=== PATIENT | male | born 1950 | race Caucasian/White ===

== ENCOUNTER → 2016-08-08 | Outpatient (CLI) | payer MEDICARE | LOC: GMAB 10:42 | PROVIDERS: ATTEND Family Medicine | DX: E03.9 Hypothyroidism, unspecified (principal); I10 Essential (primary) hypertension; Z12.5 Encounter for screening for malignant neoplasm of prostate | CPT/HCPCS: 80061; 84439; 84443; 84481; G0103 ==

== ENCOUNTER → 2016-11-11 | Outpatient (CLI) | payer MEDICARE ==
--- NOTE | 2016-11-12 16:57 | MRI ---
Procedure: MR LUMBAR SPINE WITHOUT IV CONTRAST Exam Date: 11/11/2016 12:00 AM CDT Ordering Provider: RADHA LEWIS Clinical Indication: RADICULOPATHY Comparison: None Technique: Multiplanar, multisequence MR images of the lumbar spine were obtained. Findings: No evidence of vertebral body compression deformity or acute fracture. Multilevel degenerative disc space height loss and disc desiccation greatest at the L1-L2 and L2-L3 levels. Spinal cord terminates at the superior endplate of L1 and is normal in signal morphology. T12-L1: Broad-based disc bulge and mild bilateral facet arthrosis. No spinal canal or foraminal stenosis. L1-L2: Advanced facet arthrosis and broad-based disc bulge. There is bilateral foraminal disc herniations as well. This contributes to moderate right and mild left neural foraminal stenosis. Spinal canal is patent. L2-L3: Broad-based disc bulge with disc space height loss. There is a large left paracentral disc protrusion measuring 9 mm in AP diameter. This measures 1.1 cm at its base. This results in severe spinal canal stenosis and crowding of the cauda equina with buckling proximal and straightening distally. There is severe left subarticular recess stenosis as well. The foramina however are patent. L3-L4: Broad-based disc bulge without focal disc protrusion. Advanced facet arthrosis and marked ligamentum flavum hypertrophy. No spinal canal or subarticular recess stenosis. There is mild bilateral neural foraminal stenosis with moderate left extraforaminal disc herniation which contacts the traversing left L3 nerve root. L4-L5: Broad-based disc bulge with mild facet arthrosis. Bilateral ligament flavum hypertrophy as well. No spinal canal stenosis at there is mild right greater than left neural foraminal stenosis. L5-S1: Mild bilateral facet arthrosis with broad-based left foraminal disc protrusion. This results in moderate left neural foraminal stenosis and contact of the traversing left L5 nerve root. Spinal canal and right neural foramina are patent. There is mild levoconvex scoliotic curvature with apex of the L1-L2 level. Prevertebral and paravertebral soft tissues are unremarkable. Impression: Multilevel/multifactorial lumbar spondylosis with mild levoconvex scoliotic curvature. There is a large focal disc protrusion at L2-L3 and the left paracentral distribution. This results in severe spinal canal and subarticular recess stenosis at this level. See full discussion above. Electronically signed by: Alverto Kline MD 11/12/2016 4:57 PM CDT
== END | disposition home or self-care (01) ==
LOC: MRI 10:43
PROVIDERS: ATTEND Family Medicine
DX: M54.16 Radiculopathy, lumbar region (principal)

== ENCOUNTER → 2017-05-16 | Outpatient (CLI) | payer MEDICARE | LOC: GMAB 16:44 | PROVIDERS: ATTEND Family Medicine | DX: R06.02 Shortness of breath (principal) ==

== ENCOUNTER → 2017-05-22 | Outpatient (CLI) | payer MEDICARE | END | disposition home or self-care (01) | LOC: GMAB 14:10 | PROVIDERS: ATTEND Family Medicine | DX: L03.311 Cellulitis of abdominal wall (principal) ==

== ENCOUNTER 2017-05-23 15:52 | Inpatient (IN) | payer MEDICARE ==
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
[2017-05-23] MEDS ORDERED: ACETAMINOPHEN 325 MG TAB PO PRN (16:36)
[2017-05-23] MEDS ORDERED: HYDROcodone 5MG/APAP 325MG 1 EA TAB PO PRN (16:36)
[2017-05-23] MEDS ORDERED: CHLORHEXIDINE GLUCONATE 4 % 15 ML UD TOP ONE ×2 (16:46→16:48)
[2017-05-23] MEDS ORDERED: IV SET AND CAP CHANGE INJ INJ SCH (17:00)
[2017-05-23] MEDS ORDERED: DEXTROSE 50% 25 GM/50 ML SYG IV PRN (17:24)
[2017-05-23] MEDS ORDERED: GLUCAGON INJ 1 MG VIAL SUBCU PRN (17:24)
[2017-05-23] MEDS ORDERED: LINEZOLID IV 300 ML IVPB ONE (18:10)
[2017-05-23] MEDS: LINEZOLID IV 600 MG in PREMIX BAG 1 BAG IVPB SCH (18:41)
[2017-05-23] MEDS: INSULIN LISPRO 100 UNITS/ML PEN SUBCU SCH (20:57)
[2017-05-23] MEDS ORDERED: HYDROcodone 7.5MG/APAP 325MG 1 EA TAB PO PRN (22:05)
[2017-05-23] MEDS: INSULIN GLARGINE 42 UNIT SC SCH (22:15)
[2017-05-23] MEDS: CYCLOBENZAPRINE HCL 10 MG TAB PO SCH (22:29)
[2017-05-23] MEDS: ZOLPIDEM TARTRATE 10 MG TAB PO SCH (22:29)
[2017-05-23] MEDS: ATORVASTATIN 20 MG TAB PO SCH (22:29)
[2017-05-23] MEDS: RIVAROXABAN 15 MG TAB PO SCH (22:29)
[2017-05-23] MEDS: PANTOPRAZOLE SODIUM TAB 40 MG PO SCH (22:29)
[2017-05-23] MEDS: TAMSULOSIN 0.4 MG CAP PO SCH (22:30)
[2017-05-23] MEDS: metFORMIN HCL 500 MG TAB PO SCH (22:30)
[2017-05-23] MEDS: diphenhydrAMINE HCL 25 MG CAP PO SCH (22:30)
[2017-05-23] MEDS: CETIRIZINE HCL 10 MG TAB PO SCH (22:30)
[2017-05-23] MEDS ORDERED: METOPROLOL TARTRATE 50 MG TAB PO SCH (22:30)
[2017-05-23] MEDS: glipiZIDE 5 MG TAB PO SCH (22:46)
[2017-05-23] MEDS: GABAPENTIN 300 MG CAP PO SCH (22:46)
--- NOTE | 2017-05-23 23:07 | PCM.CORE ---
Physician DVT/VTE - Prophylaxis Currently: Patient already on anticoagulation therapy - XARELTO - Nurse DVT Assessment & Total Each Risk Factor Represents 3 Points: Hx of DVT/PE, Medical PT with Hx of MT, CHF, Severe infection/sepsis Each Risk Factor Represents 2 Points: Age 60-74 Each Risk Factor is 1 Point: Obesity (BMI >25) DVT Assessment Score: 9 - 5 or more Very High Risk Treatments: Early Ambulation *, Sequential Compression Device
[2017-05-24] MEDS ORDERED: LINEZOLID IV 300 ML IVPB ONE ×3 (04:55→19:54)
[2017-05-24] MEDS: SODIUM CHLORIDE 0.9% (FLUSH) 10 ML SYG IV PRN ×2 (05:01→12:15)
[2017-05-24] MEDS: LINEZOLID IV 600 MG in PREMIX BAG 1 BAG IVPB SCH ×2 (05:01→17:11)
[2017-05-24] MEDS: INSULIN LISPRO 100 UNITS/ML PEN SUBCU SCH ×4 (08:12→20:50)
[2017-05-24] MEDS: glipiZIDE 5 MG TAB PO SCH (08:18)
[2017-05-24] MEDS: metFORMIN HCL 500 MG TAB PO SCH ×2 (08:18→17:10)
[2017-05-24] MEDS: ISOSORBIDE MONONITRATE (IMDUR) 30 MG TAB PO SCH (08:18)
[2017-05-24] MEDS ORDERED: VITAMIN A 8000 UNIT PO SCH (09:00)
[2017-05-24] MEDS ORDERED: glipiZIDE EXTENDED REL (XL) 2.5 MG TAB PO SCH (09:00)
[2017-05-24] MEDS ORDERED: ALPRAZolam 0.5 MG TAB PO PRN (09:59)
[2017-05-24] MEDS: B COMPLEX 1 EA TAB PO SCH ×2 (10:29→11:23)
[2017-05-24] MEDS: CELECOXIB 100 MG CAP PO SCH ×2 (10:29→11:24)
[2017-05-24] MEDS: LISINOPRIL 10 MG TAB PO SCH ×2 (10:30→11:22)
[2017-05-24] MEDS: FENOFIBRIC ACID 135 MG CAP PO SCH ×2 (10:30→11:23)
[2017-05-24] MEDS: VITAMIN E 1,000 IU CAP PO SCH (10:30)
[2017-05-24] MEDS: CYANOCOBALAMIN 1,000 MCG TAB PO SCH (10:30)
[2017-05-24] MEDS: NIACIN 500 MG TAB PO SCH ×2 (10:30→11:23)
[2017-05-24] MEDS: CLOPIDOGREL 75 MG TAB PO SCH ×2 (10:30→11:21)
[2017-05-24] MEDS: GABAPENTIN 300 MG CAP PO SCH ×2 (10:30→20:45)
[2017-05-24] MEDS: MAGNESIUM OXIDE 400 MG TAB PO SCH ×2 (10:30→11:24)
[2017-05-24] MEDS: INSULIN GLARGINE 42 UNIT SC SCH (10:30)
[2017-05-24] MEDS: CHOLECALCIFEROL 2,000 IU TAB PO SCH (10:30)
[2017-05-24] MEDS: METOPROLOL TARTRATE 50 MG TAB PO SCH ×2 (10:35→17:10)
--- NOTE | 2017-05-24 10:51 | US ---
EXAM DESCRIPTION: Soft Tissue,Abdomen CLINICAL HISTORY: abcess to abdomen COMPARISON: None. IMPRESSION: Real-time sonographic images of the left anterior abdominal wall are obtained. No abnormal fluid collection in the visualized subcutaneous soft tissue or upper abdomen is seen by ultrasound criteria. Electronically signed by: Adi Fierro MD 05/24/2017 10:49 AM [facility]
--- NOTE | 2017-05-24 11:00 | CONS ---
DATE OF CONSULTATION: 05/23/17 HISTORY OF PRESENT ILLNESS: The patient is a 66-year-old male who was admitted with an abscess on his anterior abdominal wall. It was I&D'd by Dr. Latham and a culture was pending at the time of discharge. The patient states this area started on last Monday and worsened over the weekend. On Monday, it was incised and by 05/23/17, it was worse and more painful and he was having low- grade fever. He was admitted for IV antibiotics therapy. It is also significant that the patient has multiple myeloma and is undergoing chemotherapy and was scheduled for chemotherapy this week. He has multiple antibiotic allergies also. PAST MEDICAL HISTORY: 1. Diabetes mellitus, type 2. 2. Hypertension. 3. Recurrent pancreatitis. 4. History of renal failure. 5. Osteoarthritis. 6. Coronary artery disease. 7. Hyperlipidemia. 8. Shingles. 9. Degenerative disc disease. 10. Gastroesophageal reflux. 11. Benign prostatic hypertrophy. 12. Myocardial infarctions status post stents. 13. Pulmonary embolism. PAST SURGICAL HISTORY: 1. Multiple endoscopic retrograde cholangiopancreatographies. 2. Cystoscopy for stones. 3. Carpal tunnel release. 4. Laparoscopic cholecystectomy. 5. Pyelolithotomy. 6. Tonsillectomy. 7. Right knee surgery. 8. Right foot surgery. 9. Stem cell transplant. 10. Placement of an infusion port. MEDICATIONS AT TIME OF ADMISSION: 1. Lasix. 2. Metoprolol. 3. Niacin. 4. Lisinopril. 5. Fenofibrate. 6. Glipizide. 7. Xarelto. 8. Isosorbide. 9. Zofran. 10. Gabapentin. 11. Metformin. 12 Protonix. 13. Insulin. 14. Celebrex. 15. Potassium chloride. 16. Cyclobenzaprine. 17. Flomax. 18. Zyrtec. 19. [place]. 20. Benadryl. 21. Nitrostat. 22. Doxycycline prior to admission. 23. Glucotrol. 24. Lipitor. 25. Low dose aspirin. 26. Proventil nebulizers. ALLERGIES: PENICILLIN, VANCOMYCIN, TAPE. FAMILY HISTORY: Positive for coronary artery disease, diabetes, hypertension. SOCIAL HISTORY: The patient is with four children. He does not drink. He quit smoking many years ago. He is disabled secondary to the multiple myeloma. REVIEW OF SYSTEMS: Noncontributory except as in the history of present illness. PHYSICAL EXAMINATION: VITAL SIGNS: The patient is currently afebrile, normotensive. HEENT: Sclerae nonicteric. Mucous membranes moist. NECK: Without adenopathy. CHEST: Equal breath sounds. HEART: Regular rhythm. ABDOMEN: Soft, distended, nontender. There is an area of cellulitis with an incision site on the lateral mid abdomen on the left. There is surrounding erythema and it is quite tender and warm. There is some purulent drainage. EXTREMITIES: Without cyanosis, clubbing or edema. LABORATORY: Normal white count. Culture reveals methicillin-resistant Staphylococcus aureus at this point. PLAN: He has been started on Zyvox. We will have him do a Hibiclens shower prior to the initiation of access to the infusion port and followup with the ultrasound and the cultures tomorrow. [facility][id number] [facility]
[2017-05-24] MEDS ORDERED: diphenhydrAMINE HCL 50 MG/ML VIAL IV ONE (12:10)
[2017-05-24] MEDS ORDERED: diphenhydrAMINE HCL 50 MG/ML VIAL ONE (12:11)
[2017-05-24] MEDS ORDERED: INSULIN DETEMIR 100 UNITS/ML PEN SUBCU ONE ×2 (14:00→15:18)
--- NOTE | 2017-05-24 15:29 | PN ---
DATE: 05/24/17 SUPERVISING PHYSICIAN: Neville Stevenson M.D. SUBJECTIVE: The patient is sitting up on the side of his bed. His is at bedside. He feels much better today and his abdomen is much less sore. He had earlier complaints of some flushing and tingling on his head. We have decided that it was probably his niacin and he agreed that sometimes his home niacin would do that to him, but he usually takes it at night and he had just received his niacin about 30 minutes prior to getting the flushing and tingling. OBJECTIVE: VITAL SIGNS: He is afebrile, heart rate 89, blood pressure 132/79, respiratory rate 20, O2 sat is 98% on room air. RESPIRATORY: Clear to auscultation bilaterally. CARDIAC: Regular rate and rhythm. ABDOMEN: Soft, nondistended, non-tender. Bowel sounds are positive. He does have a dressing over that abscess on his left upper quadrant. The erythema has decreased since yesterday and it is only mildly tender to palpation. EXTREMITIES: No cyanosis, clubbing or edema. NEUROLOGIC: He is awake, alert and oriented times three. LABORATORY: White count is normal at 6.9 with hemoglobin 11.5, hematocrit 33.7. Sodium 135, potassium 4.4, chloride 99, carbon dioxide 26, anion gap 14.4 , BUN 20, creatinine 1.20. Glucose has run between 218 and 292. Calcium 9.1, alkaline phosphatase 37. Wound culture is positive for Staphylococcus aureus. It is MRSA and it is sensitive to Zyvox which he is on. RADIOLOGY: He had a soft tissue ultrasound done this morning and per radiology interpretation shows real time sonographic images of the left anterior abdominal wall with no abnormal fluid collection in the visualize subcutaneous soft tissue or upper abdomen is seen by ultrasound criteria. All other labs and films have been reviewed via the EMR. ASSESSMENT: 1. Abscess and cellulitis to the left abdomen with recent incision and drainage failing to respond to outpatient treatment with Doxycycline and the patient having an immunocompromised state secondary to underlying multiple myeloma with ongoing chemotherapy requiring parenteral antibiotics and surgical consultation for further treatment. 2. History of stage 2 IGG kappa multiple myeloma with previous auto stem placement on current chemotherapy. 3. Diabetes mellitus type 2 requiring insulin therapy. 4. Hypertension. 5. History of recurrent pancreatitis. 6. History of multiple kidney stones. 7. Coronary artery disease. 8. Hyperlipidemia. 9. Gastroesophageal reflux disease. 10. Benign prostatic hypertrophy. 11. History of previous pulmonary embolism on Xarelto. PLAN: We will continue present supportive care. Since his sensitivities are back, we will continue his Zyvox until in the morning and then tomorrow morning we will start him on Doxycycline and Bactrim as both of those show sensitivity on his cultures. Dr. Mercedes examined the patient and he felt at this time there was no need for further incision and drainage, and that he will need to followup if there are any further issues. I have held on any AM labs for now. I also discontinued his niacin here in the hospital. He can take it as instructed once he gets home. We will plan on discharge for tomorrow with his p.o. antibiotics. Otherwise we will continue to monitor the patient closely and followup as needed. Dr. Stevenson is the collaborating physician available for consultation. #[id number] [facility]
[2017-05-24] MEDS: RIVAROXABAN 15 MG TAB PO SCH (20:44)
[2017-05-24] MEDS: TAMSULOSIN 0.4 MG CAP PO SCH (20:45)
[2017-05-24] MEDS: CETIRIZINE HCL 10 MG TAB PO SCH (20:45)
[2017-05-24] MEDS: ATORVASTATIN 20 MG TAB PO SCH (20:45)
[2017-05-24] MEDS: PANTOPRAZOLE SODIUM TAB 40 MG PO SCH (20:45)
[2017-05-24] MEDS: diphenhydrAMINE HCL 25 MG CAP PO SCH (20:47)
[2017-05-24] MEDS: CYCLOBENZAPRINE HCL 10 MG TAB PO SCH (20:47)
[2017-05-24] MEDS: ZOLPIDEM TARTRATE 10 MG TAB PO SCH (20:47)
[2017-05-24] MEDS: INSULIN DETEMIR 100 UNITS/ML PEN SUBCU SCH (20:49)
[2017-05-25] MEDS: LINEZOLID IV 600 MG in PREMIX BAG 1 BAG IVPB SCH (04:41)
[2017-05-25] MEDS ORDERED: glipiZIDE 5 MG TAB PO SCH (07:30)
[2017-05-25] MEDS: INSULIN LISPRO 100 UNITS/ML PEN SUBCU SCH (08:09)
[2017-05-25] MEDS: metFORMIN HCL 500 MG TAB PO SCH (08:10)
[2017-05-25] MEDS: METOPROLOL TARTRATE 50 MG TAB PO SCH (08:10)
[2017-05-25] MEDS ORDERED: SODIUM CHLORIDE 0.9% 250ML 0 ML ONE (08:51)
[2017-05-25] MEDS ORDERED: DOXYCYCLINE HYCLATE IV 100 MG VIAL IVPB ONE (08:52)
[2017-05-25] MEDS ORDERED: DOXYCYCLINE HYCLATE IV 100 MG in SODIUM CHLORIDE 0.9% 250ML 250 ML IVPB SCH (09:00)
[2017-05-25] MEDS ORDERED: SULFA/TRIMETH 800/160 (DS) TAB 1 EA TAB PO SCH (09:00)
[2017-05-25] MEDS ORDERED: DOXYCYCLINE HYCLATE CAP 100 MG CAP PO ONE (09:07)
[2017-05-25] MEDS: FENOFIBRIC ACID 135 MG CAP PO SCH (09:21)
[2017-05-25] MEDS: LISINOPRIL 10 MG TAB PO SCH (09:21)
[2017-05-25] MEDS: ISOSORBIDE MONONITRATE (IMDUR) 30 MG TAB PO SCH (09:21)
[2017-05-25] MEDS: CELECOXIB 100 MG CAP PO SCH (09:21)
[2017-05-25] MEDS: B COMPLEX 1 EA TAB PO SCH (09:21)
[2017-05-25] MEDS: CYANOCOBALAMIN 1,000 MCG TAB PO SCH (09:21)
[2017-05-25] MEDS: VITAMIN E 1,000 IU CAP PO SCH (09:21)
[2017-05-25] MEDS: CLOPIDOGREL 75 MG TAB PO SCH (09:22)
[2017-05-25] MEDS: INSULIN DETEMIR 100 UNITS/ML PEN SUBCU SCH (09:22)
[2017-05-25] MEDS: MAGNESIUM OXIDE 400 MG TAB PO SCH (09:22)
[2017-05-25] MEDS: GABAPENTIN 300 MG CAP PO SCH (09:22)
[2017-05-25] MEDS: CHOLECALCIFEROL 2,000 IU TAB PO SCH (09:28)
--- NOTE | 2017-05-25 10:12 | DS ---
SUPERVISING PHYSICIAN: Neville Stevenson MD DISCHARGE DIAGNOSIS: 1. Abscess and cellulitis to the left abdomen with recent incision and drainage failing to respond to outpatient treatment with Doxycycline and the patient having an immunocompromised state secondary to underlying multiple myeloma with ongoing chemotherapy requiring parenteral antibiotics and surgical consultation for further treatment. 2. History of stage 2 IGG kappa multiple myeloma with previous auto stem placement on current chemotherapy. 3. Diabetes mellitus type 2 requiring insulin therapy. 4. Hypertension. 5. History of recurrent pancreatitis. 6. History of multiple kidney stones. 7. Coronary artery disease. 8. Hyperlipidemia. 9. Gastroesophageal reflux disease. 10. Benign prostatic hypertrophy. 11. History of previous pulmonary embolism on Xarelto. HISTORY OF PRESENT ILLNESS: This is a 66-year-old male patient who has a stage 2 IGG kappa multiple myeloma. He has had a history in the past of cellulitis that is methicillin-resistant Staphylococcus aureus. Monday, he started developing a small area of the left side of his abdomen that slowly worsened over the weekend. He presented to Dr. Latham's office on Monday and had incision and drainage done to the area. Dr. Latham reported that a moderate quantity of purulent drainage was obtained, cultures were sent and the area was packed. The morning of admission, he called Dr. Latham to let him know that the area had gotten worse. He had been started on doxycycline at Dr. Latham's office. Dr. Latham then contacted Neymar Ingram's oncologist in [place] because he was supposed chemotherapy this week, but it was cancelled, and he was sent to the hospital for direct admission for cellulitis on the abdomen failing outpatient therapy. He has an allergy to vancomycin, so he was started on Zyvox IV initially. Over the next two days, it improved dramatically until this morning he actually says it does not even hurt. His cultures and sensitivities came back. It was positive for methicillin-resistant Staphylococcus aureus and had sensitivity to Zyvox, Bactrim and doxycycline. He finished two days of Zyvox this morning and has reached the point that he can be discharged home on oral medications. DISCHARGE PLAN: The patient will be discharged home in stable condition. He is to resume his previous diet and activity. He has a followup appointment with Dr. Latham on 05/31/17 at 10 AM. He is to complete his doxycycline that he has at home as well as I have sent him home on Bactrim. Both Bactrim and doxycycline have sensitivity to his methicillin-resistant Staphylococcus aureus. He is to return to the hospital or followup with Dr. Latham's office for any problems or complications. DISCHARGE MEDICATIONS: 1. Mupirocin ointment. 2. Metformin. 3. Aspirin. 4. Cyclobenzaprine. 5. Zolpidem. 6. Benadryl. 7. Tamsulosin. 8. Hydrocodone. 9. Amlodipine. 10. Furosemide. 11. B-complex with folic acid. 12. Vitamin A. 13. NovoLog insulin. 14. Atorvastatin. 15. Alprazolam. 16. Acyclovir. 17. Acetaminophen. 18. Nitroglycerin. 19. Atenolol. 20. Plavix. 21. Celebrex. 22. Cetirizine. 23. Albuterol sulfate nebulizers. 24. Vitamin B6. 25. Niacin. 26. Lisinopril. 27. Fenofibrate. 28. Glipizide. 29. Xarelto. 30. Isosorbide. 31. Zofran. 32. Gabapentin. 33. Pantoprazole. 34. Cyanocobalamin. 35. Vitamin D. 36. Mag oxide. 37. Insulin Glargine. 38. Vitamin E. 39. Potassium chloride. 40. Doxycycline. 41. Metoprolol tartrate. 42. Bactrim DS. Dr. Stevenson is the collaborating physician and available for consultation. #[id number] [facility]
[2017-05-25 11:02] VITALS: BP 121/78; TEMP 98.6; O2SAT 97
== END 2017-05-25 10:40 | disposition home or self-care (01) | DRG 603 ==
LOC: MS 15:52
PROVIDERS: ADMIT Nurse Practitioner Family; ATTEND Nurse Practitioner Acute Care
DX: L02.211 Cutaneous abscess of abdominal wall (principal); Z94.84 Stem cells transplant status; C90.00 Multiple myeloma not having achieved remission; L03.311 Cellulitis of abdominal wall; E11.9 Type 2 diabetes mellitus without complications; I10 Essential (primary) hypertension; M19.90 Unspecified osteoarthritis, unspecified site; I25.10 Atherosclerotic heart disease of native coronary artery without angina pectoris; E78.5 Hyperlipidemia, unspecified; K21.9 Gastro-esophageal reflux disease without esophagitis; N40.0 Benign prostatic hyperplasia without lower urinary tract symptoms; E66.9 Obesity, unspecified; I25.2 Old myocardial infarction; Z95.5 Presence of coronary angioplasty implant and graft; Z86.711 Personal history of pulmonary embolism; Z95.828 Presence of other vascular implants and grafts; Z79.01 Long term (current) use of anticoagulants; Z79.84 Long term (current) use of oral hypoglycemic drugs; Z79.4 Long term (current) use of insulin; Z79.1 Long term (current) use of non-steroidal anti-inflammatories (NSAID); Z79.82 Long term (current) use of aspirin; Z88.0 Allergy status to penicillin; Z88.1 Allergy status to other antibiotic agents; Z87.891 Personal history of nicotine dependence; Z86.14 Personal history of Methicillin resistant Staphylococcus aureus infection; Z92.21 Personal history of antineoplastic chemotherapy; Z90.49 Acquired absence of other specified parts of digestive tract; Z68.38 Body mass index [BMI] 38.0-38.9, adult

== ENCOUNTER → 2017-05-23 | Outpatient (CLI) | payer MEDICARE | END | disposition home or self-care (01) | LOC: GMAB 14:44 | PROVIDERS: ATTEND Family Medicine | DX: L03.311 Cellulitis of abdominal wall (principal) ==

== ENCOUNTER → 2017-08-15 | Outpatient (CLI) | payer MEDICARE | LOC: GMAB 17:55 | PROVIDERS: ATTEND Family Medicine | DX: I10 Essential (primary) hypertension (principal); Z12.5 Encounter for screening for malignant neoplasm of prostate | CPT/HCPCS: 84443; G0103 ==

== ENCOUNTER 2017-10-21 22:47 | Emergency (ER) | payer MEDICARE ==
[2017-10-21] MEDS ORDERED: ALUMINUM & MAGNESIUM HYDROXIDE 30 ML UD PO ONE (23:23)
[2017-10-21] MEDS ORDERED: ONDANSETRON ODT 8 MG TAB SL ONE (23:23)
[2017-10-21] MEDS ORDERED: ACETAMINOPHEN 325 MG TAB PO ONE (23:23)
[2017-10-21] MEDS ORDERED: FLUCONAZOLE 150 MG TAB PO ONE (23:23)
[2017-10-22] MEDS ORDERED: SODIUM CHLORIDE 0.9% 1000ML 1,000 ML IVS ONE (00:06)
[2017-10-22] MEDS ORDERED: CIPROFLOXACIN 500 MG TAB PO ONE (00:07)
[2017-10-22] MEDS ORDERED: metroNIDAZOLE IV PREMIX 500MG 500 MG in PREMIX BAG 1 BAG IVPB ONE (00:07)
--- NOTE | 2017-10-22 00:15 | RAD ---
EXAM: TWO VIEW SINGLE and UPRIGHT ABDOMEN AND PA CHEST RADIOGRAPHS CLINICAL INDICATION: Abdominal pain. Fever. Chemotherapy. COMPARISON: Chest radiograph of September 30, 2015. FINDINGS: Indwelling venous port central line tip is in the superior vena cava. Cardiac size and pulmonary vasculature are normal. Clear. Several loops of gas-filled nondistended small bowel in the left abdomen. No mechanical bowel obstruction or free peritoneal gas. Sequela of remote cholecystectomy. Degenerative disease in the lower lumbosacral spine. IMPRESSION: 1. Several loops of gas-filled nondistended small bowel which may represent early ileus. No mechanical small bowel obstruction. 2. Normal PA chest radiograph. Electronically signed by: Herber Johnson MD 10/22/2017 12:14 AM CDT
[2017-10-22] MEDS ORDERED: metroNIDAZOLE IV PREMIX 500MG 100 ML IVPB ONE (00:44)
[2017-10-22] MEDS ORDERED: INSULIN LISPRO 100 UNITS/ML PEN SUBCU ONE (00:45)
[2017-10-22] MEDS ORDERED: OSELTAMIVIR 75 MG CAP PO ONE (00:47)
--- NOTE | 2017-10-22 00:58 | ED.PDOC ---
History of Present Illness - General Chief Complaint: GI Problem Stated Complaint: stomach cramping, nausea Time Seen by Provider: 10/21/17 23:13 Source: patient Exam Limitations: no limitations - History of Present Illness Initial Comments: the patient is a 67-year-old male presenting to the emergency room secondary to a low-grade fever and some abdominal cramping today. He has had some diarrhea but that is not a new issue. He has had some bloating and some reflux. No real vomiting because he took some nausea medication. The patient has a history of multiple myeloma and has been on chemotherapy in some form for the last 5 or 6 years. 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 He is not feeling very bad now that he has arrived here. His medications at home have controlled his fever. He reports a fever up to 101 at home. He has not noted any skin lesions like he has had before with previous staph infections. No urinary symptoms. No shortness of breath sort throat or runny nose. Symptoms simply started this morning. Symptoms are mild to moderate. Timing/Duration: 24 hours Severity: moderate Improving Factors: nothing Worsening Factors: nothing Associated Symptoms: fever/chills, loss of appetite, malaise, nausea/vomiting Allergies/Adverse Reactions: Allergies Penicillins Allergy (Verified 05/23/17 15:42) Vancomycin Allergy (Verified 05/23/17 15:42) tape Allergy (Uncoded 05/23/17 15:42) Home Medications: Ambulatory Orders Acetaminophen [Tylenol] 500 mg PO BID PRN 09/29/15 Acyclovir [Zovirax] 400 mg PO BID PRN 09/29/15 Alprazolam [Niravam] 0.5 mg PO TID PRN 09/29/15 Aspirin [Aspirin Adult Low Dose] 81 mg PO DAILY 09/29/15 Atenolol [Tenormin] 100 mg PO BID 09/29/15 Atorvastatin Calcium [Lipitor] 20 mg PO BEDTIME 09/29/15 B-Complex W/ Folic Acid [Super B Complex Maxi] 1 ea PO DAILY 09/29/15 Celecoxib 200 mg PO DAILY 09/29/15 Cetirizine HCl [Zyrtec] 10 mg PO BEDTIME 09/29/15 Clopidogrel Bisulfate [Plavix] 75 mg PO DAILY 09/29/15 Cyclobenzaprine HCl 10 mg PO BEDTIME 09/29/15 Furosemide [Lasix] 40 mg PO DAILY PRN 09/29/15 HYDROcodone 7.5MG/APAP 325MG [[place] 7.5/325] 1 ea PO Q6HR PRN 09/29/15 Insulin Aspart [Novolog Flexpen] See Protocol SC AC 09/29/15 Metformin HCl 500 mg PO BIDFD 09/29/15 Mupirocin 2 % Oint [Bactroban Oint] 1 applic TOP TID PRN 09/29/15 Nitroglycerin 0.4 mg Tab [Nitrostat] 1 ea SL .Q5M PRN 09/29/15 Tamsulosin [Flomax] 0.4 mg PO BEDTIME 09/29/15 Vitamin A 8,000 unit PO DAILY 09/29/15 Zolpidem Tartrate [Ambien] 10 mg PO BEDTIME 09/29/15 amLODIPine BESYLATE [Norvasc] 10 mg PO DAILY 09/29/15 diphenhydrAMINE HCL [Benadryl] 25 mg PO BEDTIME 09/29/15 Albuterol Sulfate Nebs [Proventil Nebs] 2.5 mg INH Q4HR PRN #30 vial 09/30/15 Pyridoxine HCl [Vitamin B6] 100 mg PO DAILY #0 09/30/15 Cholecalciferol [Vitamin D3] 5,000 unit PO DAILY 05/23/17 Cyanocobalamin [Vitamin B-12] 1,000 mcg PO DAILY 05/23/17 Doxycycline 100 mg PO BID 05/23/17 Fenofibrate 160 mg PO DAILY 05/23/17 Gabapentin 300 mg PO BID 05/23/17 Glipizide 5 mg PO DAILYBK 05/23/17 Insulin Glargine [Toujeo Solostar] 42 unit SC BID 05/23/17 Isosorbide Mononitrate [Isosorbide Mononitrate ER] 30 mg PO DAILY 05/23/17 Lisinopril 40 mg PO DAILY 05/23/17 Magnesium Oxide (mg Supplement [Magnesium Oxide] 400 mg PO DAILY 05/23/17 Metoprolol Tartrate 50 mg PO BID 05/23/17 Niacin 500 mg PO DAILY 05/23/17 Ondansetron HCl [Zofran] 4 mg PO TID PRN 05/23/17 Pantoprazole Tablet [Protonix] 40 mg PO BEDTIME 05/23/17 Potassium Chloride [Potassium Chloride ER] 20 meq PO DAILY 05/23/17 Pyridoxine HCl [Vitamin B6] 100 mg PO DAILY 05/23/17 Rivaroxaban [Xarelto] 15 mg PO BEDTIME 05/23/17 Vitamin E [Natural Vitamin E] 1,000 unit PO DAILY 05/23/17 Doxycycline Hyclate 100 mg PO BID #20 cap 05/25/17 Sulfa/Trimeth 800/160 (Ds) Tab [Bactrim DS] 1 ea PO Q12H #19 tab 05/25/17 Ciprofloxacin [Cipro] 500 mg PO BID #14 tab 10/22/17 Metronidazole 500 mg PO TID #20 tab 10/22/17 Oseltamivir Capsule [Tamiflu] 75 mg PO BID 5 Days #10 capsule 10/22/17 Review of Systems - Review of Systems Constitutional: States: fever, malaise EENTM: States: no symptoms reported Respiratory: States: no symptoms reported Cardiology: States: no symptoms reported Gastrointestinal/Abdominal: States: abdominal pain - ild, diarrhea, nausea Genitourinary: States: no symptoms reported Musculoskeletal: States: no symptoms reported Skin: States: no symptoms reported Neurological: States: no symptoms reported Endocrine: States: no symptoms reported All other Systems: No Change from Baseline Past Medical History (General) - Patient Medical History Hx Seizures: No Hx Stroke: No Hx Asthma: Yes Hx of COPD: Yes Hx Cardiac Disorders: Yes - [place] -9 stents Hx Congestive Heart Failure: Yes Hx Pacemaker: No Hx Hypertension: Yes Hx Diabetes: Yes Hx Gastroesophageal Reflux: Yes Hx Renal Disease: Yes Hx Cancer: Yes - bone, multiple myeloma Hx MRSA: Yes - 2016 MRSA Source:: Wound Surgical History: appendectomy, cholecystectomy, other - Vaccination History Hx Tetanus, Diphtheria Vaccination: Yes Hx Influenza Vaccination: Yes Hx Pneumococcal Vaccination: Yes - Social History Hx Tobacco Use: No Hx Alcohol Use: No Hx Substance Use: No Hx Substance Use Treatment: No Hx Depression: No Hx Physical Abuse: No Hx Emotional Abuse: No Hx Suspected Abuse: No Family Medical History - Family History Mother Family History: Unknown Living Status: Hx Family Asthma: Yes Hx Family;Other: Dementia Father Living Status: Age at (years of age): 53 Hx Cardiac Disease: Yes Physical Exam - Physical Exam General Appearance: Alert, Comfortable, No apparent distress Eye Exam: bilateral normal Ears, Nose, Throat: hearing grossly normal, normal ENT inspection, normal pharynx Neck: full range of motion, supple, normal inspection Respiratory: lungs clear, normal breath sounds, no respiratory distress, no accessory muscle use Cardiovascular/Chest: normal peripheral pulses, regular rate, rhythm, no edema Peripheral Pulses: radial,right: 2+, radial,left: 2+, dorsalis pedis,right: 2+, dorsalis pedis,left: 2+ Gastrointestinal/Abdominal: non tender - mild diffuse discomfort to palpation. No rebound or peritoneal signs. No obvious bruising and certainly no cellulitis visible at this point., soft Rectal Exam: deferred Back Exam: no CVA tenderness, no vertebral tenderness Extremity: normal range of motion, non-tender, normal inspection, no pedal edema , normal capillary refill Neurologic: steward/stewardess bath II-XII nml as tested, alert, normal mood/affect, oriented x 3 Skin Exam: normal color Comments: Vital Signs - 24 hr 10/21/17 23:04 Temperature 98.9 F Pulse Rate [ 112 H left] Respiratory 18 Rate Blood Pressure 136/82 [left] O2 Sat by Pulse 94 L Oximetry he patient is pleasant, cooperative and helpful. No evidence of any distress at this time. Progress - Progress Progress: 10/22/17 00:59 the patient's 67-year-old male presenting to the emergency room secondary to mild nausea and abdominal cramping with associated fever today. The patient is on chemotherapy and is thus in a presumed immunocompromised state. Source of the gastroenteritis is most likely viral but bacterial and fungal pathologies are certainly possible. The patient has received a dose of Diflucan here tonight. The patient is also receiving first doses of ciprofloxacin and metronidazole and Tamiflu here tonight. He will be continued on ciprofloxacin, metronidazole and Tamiflu for the next 5-7 days. He has received a small IV fluid bolus as well here tonight. He needs to keep himself well hydrated. I want him to follow up with his primary care doctor on Monday for reevaluation. he has agreed to this. At this time I do not see any additional in-hospital services that would benefit the patient versus outpatient care. ER warnings are given for any worsening which would certainly require further evaluation and treatment. He can continue to take some Maalox as needed. The patient has had a peripheral blood culture and a blood culture drawn from his port. The results of these will need to be followed-up with his primary care doctor. - Results/Orders Results/Orders: Laboratory Tests 10/21/17 10/21/17 10/21/17 00:15 23:33 23:33 WBC 6.6 RBC 3.83 L Hgb 13.3 L Hct 39.1 L MCV 102.2 H MCH 34.7 H MCHC 34.1 RDW 13.6 Plt Count 132 MPV 8.4 Absolute Neuts (auto) 5.50 Absolute Lymphs (auto) 0.50 L Absolute Monos (auto) 0.60 Absolute Eos (auto) 0.00 Absolute Basos (auto) 0.00 Neutrophils % 82.5 H Lymphocytes % 7.7 L Monocytes % 9.6 H Eosinophils % 0.1 L Basophils % 0.1 PT INR PTT (SP) Sodium 136 Potassium 4.8 Chloride 104 Carbon Dioxide 23 Anion Gap 13.8 BUN 28 H Creatinine 1.26 BUN/Creatinine Ratio 22.2 H Random Glucose 285 H Serum Osmolality 287.8 Lactic Acid Calcium 8.9 Total Bilirubin 0.6 AST 21 ALT 18 Alkaline Phosphatase 39 L Creatine Kinase 56 CK-MB (CK-2) 1.3 CK-MB (CK-2) % Not Reportable Troponin I < 0.02 Serum Total Protein 7.7 Albumin 3.8 Globulin 3.9 H Albumin/Globulin Ratio 1.0 L Amylase 59 Lipase 23 Urine Color Yellow Urine Appearance Clear Urine pH 5.0 Ur Specific [place] 1.025 Urine Protein Negative Urine Glucose (UA) 500 H Urine Ketones Trace Urine Blood Negative Urine Nitrite Negative Urine Bilirubin Negative Urine Urobilinogen 0.2 Ur Leukocyte Esterase Negative Urine RBC 0 Urine WBC 0-1 Ur Epithelial Cells 0-1 Urine Bacteria 0 10/21/17 10/21/17 23:33 23:33 WBC RBC Hgb Hct MCV MCH MCHC RDW Plt Count MPV Absolute Neuts (auto) Absolute Lymphs (auto) Absolute Monos (auto) Absolute Eos (auto) Absolute Basos (auto) Neutrophils % Lymphocytes % Monocytes % Eosinophils % Basophils % PT 17.0 H INR 1.470 PTT (SP) 28.9 Sodium Potassium Chloride Carbon Dioxide Anion Gap BUN Creatinine BUN/Creatinine Ratio Random Glucose Serum Osmolality Lactic Acid 2.3 H Calcium Total Bilirubin AST ALT Alkaline Phosphatase Creatine Kinase CK-MB (CK-2) CK-MB (CK-2) % Troponin I Serum Total Protein Albumin Globulin Albumin/Globulin Ratio Amylase Lipase Urine Color Urine Appearance Urine pH Ur Specific [place] Urine Protein Urine Glucose (UA) Urine Ketones Urine Blood Urine Nitrite Urine Bilirubin Urine Urobilinogen Ur Leukocyte Esterase Urine RBC Urine WBC Ur Epithelial Cells Urine Bacteria no evidence of any acute pulmonary infiltrates. Abdominal x-ray shows possible mild early ileus but no obstruction or free air. Departure - Departure Clinical Impression: Gastroenteritis Disposition: Discharge to Home or Self Care Condition: Fair Departure Forms: ED Discharge - Pt. Copy, Patient Portal Self Enrollment Instructions: DI for Bacterial Gastroenteritis -- Adult Diet: bland diet Activity: increase activity as tolerated Referrals: Emeka Latham MD [Primary Care Provider] - 1-2 Days Prescriptions: Ciprofloxacin [Cipro] 500 mg PO BID #14 tab Metronidazole 500 mg PO TID #20 tab Oseltamivir Capsule [Tamiflu] 75 mg PO BID 5 Days #10 capsule Home Medications: Ambulatory Orders Acetaminophen [Tylenol] 500 mg PO BID PRN 09/29/15 Acyclovir [Zovirax] 400 mg PO BID PRN 09/29/15 Alprazolam [Niravam] 0.5 mg PO TID PRN 09/29/15 Aspirin [Aspirin Adult Low Dose] 81 mg PO DAILY 09/29/15 Atenolol [Tenormin] 100 mg PO BID 09/29/15 Atorvastatin Calcium [Lipitor] 20 mg PO BEDTIME 09/29/15 B-Complex W/ Folic Acid [Super B Complex Maxi] 1 ea PO DAILY 09/29/15 Celecoxib 200 mg PO DAILY 09/29/15 Cetirizine HCl [Zyrtec] 10 mg PO BEDTIME 09/29/15 Clopidogrel Bisulfate [Plavix] 75 mg PO DAILY 09/29/15 Cyclobenzaprine HCl 10 mg PO BEDTIME 09/29/15 Furosemide [Lasix] 40 mg PO DAILY PRN 09/29/15 HYDROcodone 7.5MG/APAP 325MG [[place] 7.5/325] 1 ea PO Q6HR PRN 09/29/15 Insulin Aspart [Novolog Flexpen] See Protocol SC AC 09/29/15 Metformin HCl 500 mg PO BIDFD 09/29/15 Mupirocin 2 % Oint [Bactroban Oint] 1 applic TOP TID PRN 09/29/15 Nitroglycerin 0.4 mg Tab [Nitrostat] 1 ea SL .Q5M PRN 09/29/15 Tamsulosin [Flomax] 0.4 mg PO BEDTIME 09/29/15 Vitamin A 8,000 unit PO DAILY 09/29/15 Zolpidem Tartrate [Ambien] 10 mg PO BEDTIME 09/29/15 amLODIPine BESYLATE [Norvasc] 10 mg PO DAILY 09/29/15 diphenhydrAMINE HCL [Benadryl] 25 mg PO BEDTIME 09/29/15 Albuterol Sulfate Nebs [Proventil Nebs] 2.5 mg INH Q4HR PRN #30 vial 09/30/15 Pyridoxine HCl [Vitamin B6] 100 mg PO DAILY #0 09/30/15 Cholecalciferol [Vitamin D3] 5,000 unit PO DAILY 05/23/17 Cyanocobalamin [Vitamin B-12] 1,000 mcg PO DAILY 05/23/17 Doxycycline 100 mg PO BID 05/23/17 Fenofibrate 160 mg PO DAILY 05/23/17 Gabapentin 300 mg PO BID 05/23/17 Glipizide 5 mg PO DAILYBK 05/23/17 Insulin Glargine [Toujeo Solostar] 42 unit SC BID 05/23/17 Isosorbide Mononitrate [Isosorbide Mononitrate ER] 30 mg PO DAILY 05/23/17 Lisinopril 40 mg PO DAILY 05/23/17 Magnesium Oxide (mg Supplement [Magnesium Oxide] 400 mg PO DAILY 05/23/17 Metoprolol Tartrate 50 mg PO BID 05/23/17 Niacin 500 mg PO DAILY 05/23/17 Ondansetron HCl [Zofran] 4 mg PO TID PRN 05/23/17 Pantoprazole Tablet [Protonix] 40 mg PO BEDTIME 05/23/17 Potassium Chloride [Potassium Chloride ER] 20 meq PO DAILY 05/23/17 Pyridoxine HCl [Vitamin B6] 100 mg PO DAILY 05/23/17 Rivaroxaban [Xarelto] 15 mg PO BEDTIME 05/23/17 Vitamin E [Natural Vitamin E] 1,000 unit PO DAILY 05/23/17 Doxycycline Hyclate 100 mg PO BID #20 cap 05/25/17 Sulfa/Trimeth 800/160 (Ds) Tab [Bactrim DS] 1 ea PO Q12H #19 tab 05/25/17 Ciprofloxacin [Cipro] 500 mg PO BID #14 tab 10/22/17 Metronidazole 500 mg PO TID #20 tab 10/22/17 Oseltamivir Capsule [Tamiflu] 75 mg PO BID 5 Days #10 capsule 10/22/17 Additional Instructions: the patient's 67-year-old male presenting to the emergency room secondary to mild nausea and abdominal cramping with associated low grade fever today. The patient is on chemotherapy and is thus in a presumed immunocompromised state. Source of the gastroenteritis is most likely viral but bacterial and fungal pathologies are certainly possible. The patient has received a dose of Diflucan here tonight. The patient is also receiving first doses of ciprofloxacin and metronidazole and Tamiflu here tonight. He will be continued on ciprofloxacin, metronidazole and Tamiflu for the next 5-7 days. He has received a small IV fluid bolus as well here tonight. He needs to keep himself well hydrated. I want him to follow up with his primary care doctor on Monday for reevaluation. he has agreed to this. At this time I do not see any additional in-hospital services that would benefit the patient versus outpatient care. ER warnings are given for any worsening which would certainly require further evaluation and treatment. He can continue to take some Maalox as needed. The patient has had a peripheral blood culture and a blood culture drawn from his port. The results of these will need to be followed-up with his primary care doctor.
[2017-10-22 03:19] VITALS: BP 132/75; TEMP 97.9; O2SAT 93
== END 2017-10-22 03:15 | disposition home or self-care (01) ==
LOC: ER 22:47
DX: K52.9 Noninfective gastroenteritis and colitis, unspecified (principal); C90.00 Multiple myeloma not having achieved remission; I25.2 Old myocardial infarction; I11.0 Hypertensive heart disease with heart failure; I50.9 Heart failure, unspecified; Z94.84 Stem cells transplant status; Z79.899 Other long term (current) drug therapy; Z79.82 Long term (current) use of aspirin; Z79.02 Long term (current) use of antithrombotics/antiplatelets; Z79.4 Long term (current) use of insulin; Z86.14 Personal history of Methicillin resistant Staphylococcus aureus infection; Z98.61 Coronary angioplasty status
CPT/HCPCS: 36415; 74019; 80053; 81001; 82150; 82550; 82553; 83605; 83690; 84484; 85025; 85610; 85730; 87040; J1815; J3490; J7030

== ENCOUNTER → 2017-11-22 | Outpatient (CLI) | payer MEDICARE ==
--- NOTE | 2017-11-22 16:38 | CT ---
EXAM DESCRIPTION: Abdomen/Pelvis w/wo Contrast CLINICAL HISTORY: 67 years Male, RIGHT LOWER QUADRANT PAIN COMPARISON: None. TECHNIQUE: Transaxial images were obtained with intravenous and without oral contrast media. Sagittal and coronal reconstruction was performed.This exam was performed according to our departmental dose-optimization program, which includes automated exposure control, adjustment of the mA and/or kV according to patient size and/or use of iterative reconstruction technique. FINDINGS: The lung bases are clear. Coronary artery calcification is noted. The liver and spleen are normal in appearance. No biliary ductal dilatation is observed. Surgical clips are seen in the region of gallbladder fossa. The gallbladder is been previously removed. No adrenal masses are detected. The pancreas is normal in appearance. Imaging of the kidneys reveals no evidence of hydronephrosis mass cyst or calcification. Degenerative changes are observed in the lumbar spine. The appendix is identified and is normal in appearance. No free fluid is observed. Diverticulosis is observed in the sigmoid colon without evidence of diverticulitis. No inguinal region abnormality is seen. IMPRESSION: 1. Cholecystectomy. 2. Uncomplicated diverticulosis Electronically signed by: Joyb Hartley MD 11/22/2017 4:36 PM CDT
== END ==
LOC: RAD 15:33
PROVIDERS: ATTEND Family Medicine
DX: R10.31 Right lower quadrant pain (principal); K57.90 Diverticulosis of intestine, part unspecified, without perforation or abscess without bleeding

== ENCOUNTER → 2017-12-29 | Outpatient (CLI) | payer MEDICARE ==
--- NOTE | 2017-12-31 09:35 | US ---
EXAM DESCRIPTION: Abdomen,Complete: Ultrasound. CLINICAL HISTORY: FEVER COMPARISON: None Available. TECHNIQUE: Transabdominal scannin-dimensional and Doppler modes. FINDINGS: Gallbladder: Gallbladder not visualized. Fluid in the gallbladder fossa. Common bile duct: 9 mm. Liver: Heterogeneously increased echoes. 16.8 cm long axis right lobe. Normal portal hepatopedal flow and normal intrahepatic ducts. Smooth capsule. No ascites. Pancreas: Normal size and echogenicity.. Abdominal aorta: Normal caliber from the proximal segment to the distal bifurcation. IVC: visualized; normal caliber. Spleen normal echogenicity; long axis measurement is 10.8 cm. Right kidney: 11.9 cm long axis. Normal cortical thickness and echogenicity. No hydronephrosis. Left kidney: 11.8 cm long axis. Normal cortical thickness and echogenicity. No hydronephrosis. IMPRESSION: 1. Mild hepatomegaly with heterogeneous steatosis. Normal intrahepatic ducts. Smooth capsule. Normal vascularity. No ascites. 2. Gallbladder surgically absent. No fluid in the gallbladder fossa. Common bile duct slightly dilated even after cholecystectomy. 3. Normal size and echogenicity of the gallbladder spleen and bilateral kidneys. Electronically signed by: Oscar Alvarado MD 12/31/2017 9:34 AM CDT
== END ==
LOC: GMAJS 11:26
PROVIDERS: ATTEND Physician Assistant
DX: R50.9 Fever, unspecified (principal); R10.84 Generalized abdominal pain; R16.0 Hepatomegaly, not elsewhere classified; Z90.49 Acquired absence of other specified parts of digestive tract

== ENCOUNTER → 2018-08-27 | Outpatient (CLI) | payer MEDICARE | LOC: GMAE 11:17 | PROVIDERS: ATTEND Family Medicine | DX: I10 Essential (primary) hypertension (principal); E11.8 Type 2 diabetes mellitus with unspecified complications; Z79.4 Long term (current) use of insulin ==

== ENCOUNTER → 2018-10-08 | Outpatient (CLI) | payer MEDICARE ==
--- NOTE | 2018-10-09 11:17 | CT ---
EXAM DESCRIPTION: Abdomen/Pelvis w/o Contrast: Computed Tomography. CLINICAL HISTORY: 68 years Male LOW BACK PAIN COMPARISON: Abdomen pelvis CT scan 11/22/2017. CTA chest 09/28/2015. TECHNIQUE: Spiral-axial scans CTA chest 09/28/2015. mm intervals through the abdomen and pelvis without oral or IV contrast. Coronal and sagittal 2.0 mm reconstructions. Total Exam DLP: 1368.51 mGy-cm. This exam was performed according to our departmental CT dose-optimization program which includes automated exposure control, adjustment of the mA and/or kV according to patient size and/or use of iterative reconstruction technique; to reduce radiation dose to as low as reasonably achievable (ALARA). FINDINGS: Lung bases and pleura: 3 mm subpleural nodule partially visualized lateral left lower lobe along with focal pleural thickening. Also visualized on CTA chest 09/28/2015. Also epidural fat pad abutting the inferior lingula and coronary stents. Liver, stomach, spleen, and adrenal glands: Small gastric hiatal hernia. Stable. Long axis right lobe liver 16.2 cm. Spleen and adrenal glands negative. Pancreas, Gallbladder, and Ducts: Surgical clips gallbladder fossa. No fluid. Dilated common bile duct. Pancreas negative. Kidneys and Ureters: Negative. Pararenal fascial thickening bilaterally stable. Mesentery: Unremarkable. Aorta: Moderate atherosclerotic calcification unchanged. Small Bowel: Negative. Terminal Ileum/Cecum: Retrocecal appendix normal caliber. Otherwise unremarkable. Colon: Scattered gas and fecal material with no distention. Pelvic Organs: Thickening urinary bladder. Calcifications in the posterior central prostate gland abutting the urinary bladder and seminal vesicles. No free fluid, stable. Spine and Bony Pelvis: Multiple levels of lumbar advanced spondylosis. Also less advanced in the lower thoracic spine. Thoracolumbar levoscoliosis. Advanced arthrosis right hip more than left. Abdominal Wall/Back Soft Tissues: Diastases around the umbilicus but no bowel herniation. IMPRESSION: 1. Dilated common bile duct, and postcholecystectomy with no evidence of complications. Pancreas negative, but non-IV contrast less sensitive. Stable since prior IV contrast study. 2. Urinary bladder wall thickening stable since the prior study. 3. Partial visualization of left lower lobe nodule. Normal size of the nodule on CT scan in 2016. Consider enrolling patient in low-dose CT lung cancer screening study, versus chest CT scan. 4. Small Hiatal hernia stable. Advanced lumbar spondylosis with scoliosis and advanced arthrosis right hip stable. Electronically signed by: Oscar Alvarado MD 10/09/2018 11:14 AM CDT
== END ==
LOC: CT 11:57
PROVIDERS: ATTEND Physician Assistant
DX: M47.896 Other spondylosis, lumbar region (principal); M41.86 Other forms of scoliosis, lumbar region; N23 Unspecified renal colic; K44.9 Diaphragmatic hernia without obstruction or gangrene; M16.11 Unilateral primary osteoarthritis, right hip; R97.20 Elevated prostate specific antigen [PSA]; R91.1 Solitary pulmonary nodule; Z90.49 Acquired absence of other specified parts of digestive tract

== ENCOUNTER → 2018-12-26 | Outpatient (CLI) | payer MEDICARE ==
--- NOTE | 2018-12-27 11:22 | MRI ---
EXAM: Lumbar Spine w/o Contrast CLINICAL HISTORY: Back pain COMPARISON STUDY: MRI lumbar spine November 11, 2016 TECHNICAL: Multiplanar multisequence noncontrast MRI images of the lumbar spine. FINDINGS: The lumbar vertebral bodies are in anatomic alignment. There is no evidence for a fracture. There is a mild levoscoliotic curvature. There are no bone marrow signal changes to indicate edema or inflammation. The conus medullaris has a normal configuration. T12-L1: Disc height loss and disc desiccation are present. There is a central disc protrusion that measures 5 mm and indents the thecal sac without causing overt canal stenosis or neurologic impingement. L1-2: There is significant disc height loss and disc desiccation. There is a disc protrusion that extends anteriorly at 8 mm. A posterior disc protrusion centrally is less than 4 mm and there is no spinal canal stenosis. Disc extends into the left exiting foramina 3 mm but does not compress the exiting nerve root. Disc extends laterally on the right C6-7 mm and mildly compresses the right exiting nerve root. There are moderate osteoarthritic changes of the bilateral facets. Moderate ligamentum flavum hypertrophy is present. L2-3: Significant disc height loss. An anterior disc protrusion is 8 mm. A posterior disc herniation measures 9 mm and flattens the ventral thecal sac. When combined with ligamentum flavum hypertrophy, the effective central spinal canal is narrowed to less than 8 mm. Disc extends into both exiting foramina, 6-7 mm on the right. Left lateral disc herniation is more prominent and measures 14 mm in height by 7 mm AP. The left lateral disc herniation causes stenosis of the foramina and compresses the left exiting nerve root. Severe facet arthropathy and ligamentum flavum hypertrophy are present. L3-4: Disc height loss with a central disc protrusion of less than 4 mm does not cause central spinal canal stenosis. There is significant facet arthropathy and ligamentum flavum hypertrophy contribute to narrow both exiting foramina. The right exiting nerve root is not compressed but probably is mildly contacted by 3 mm lateral disc protrusion. The left nerve root is compressed by a lateral disc herniation that measures 10 x 9 mm in combined with severe facet arthropathy. L4-5: Disc height loss with a central disc protrusion of 7 mm causes flattening of the thecal sac but no overt canal stenosis. Disc extension into the right foramina is 10 mm and compresses the nerve root. Left lateral disc protrusion is 8 mm disc and contacts the nerve root. Moderate to severe facet arthropathy and ligamentum flavum hypertrophy. L5-S1: Annular bulge diffusely is less than 4 mm. There is no spinal canal stenosis. The left nerve root is contacted far laterally by 4 mm disc protrusion. There are severe degenerative changes of the facets. IMPRESSION: 1. Severe multilevel degenerative disc changes as discussed at each individual level. 2. Central spinal Canal stenosis at L2-3 is a combination of disc material, facet arthropathy and ligamentum flavum hypertrophy. 3. Compression of the left exiting nerve nerve roots at L2-3 and L3-4. 4. Compression of the right exiting nerve root at L4-5. 5. Contact of the left L5-S1 nerve root and left L4-5 nerve root. 6. Compression of the right L1-II nerve root. Electronically signed by: Louis Marcano MD 12/27/2018 11:20 AM CDT
--- NOTE | 2018-12-27 13:14 | MRI ---
EXAM: Thoracic Spine w/o Contrast CLINICAL HISTORY: Back pain COMPARISON STUDY: None TECHNICAL: Multiplanar multisequence noncontrast MRI images were performed through the thoracic spine. FINDINGS: The thoracic vertebral bodies are in appropriate anatomic alignment. There is no visible fracture. There are no bone marrow signal changes to indicate edema or inflammation. The spinal cord as imaged shows no mass or mass effect. The visible aspect of the cervical spine shows degenerative disc disease that is incompletely imaged. Central disc protrusions are present at T6-7, T7-8 and T8-9. These disc protrusions extend 4-5 mm posteriorly and indents the thecal sac but do not cause overt spinal canal stenosis. There is no spinal cord compression. The exiting foramina are patent at all levels of the thoracic spine. There is no level shows stenosis or neurologic impingement of exiting nerve roots. The T12-L1 central protrusion is 5 mm does not cause cord compression or canal stenosis. IMPRESSION: 1. No fracture or malalignment. 2. No spinal cord compression or, spinal canal stenosis or exiting foraminal stenosis. 3. 4-5 mm disc protrusions at T6-7, T7-8, T8-T9 and T12-L1 do not cause neurologic impingement. Electronically signed by: Louis Marcano MD 12/27/2018 1:12 PM CDT
== END ==
LOC: MRI 13:00
PROVIDERS: ATTEND Family Medicine
DX: S32.010D Wedge compression fracture of first lumbar vertebra, subsequent encounter for fracture with routine healing (principal); M51.24 Other intervertebral disc displacement, thoracic region; M51.25 Other intervertebral disc displacement, thoracolumbar region; M51.36 Other intervertebral disc degeneration, lumbar region; M48.062 Spinal stenosis, lumbar region with neurogenic claudication

== ENCOUNTER 2019-06-09 14:26 | Emergency (ER) | payer MEDICARE ==
[2019-06-09] MEDS ORDERED: SODIUM CHLORIDE 0.9% (FLUSH) 10 ML SYG IV PRN (14:46)
[2019-06-09] MEDS ORDERED: SODIUM CHLORIDE 0.9% 1000ML 500 ML IVS ONE (14:47)
[2019-06-09 15:13] VITALS: TEMP 97.4
--- NOTE | 2019-06-09 16:11 | ED.PDOC ---
History of Present Illness - General Chief Complaint: Blood Pressure Problem Stated Complaint: States low BP Time Seen by Provider: 06/09/19 14:45 - History of Present Illness Initial Comments: pt was having low blood pressure since 1 week , today t5he blood pressure was very low 60/40 and pt was about to near syncope , no chest pain or sob , pt got better after giving the water and was brought over here , here the bp is 120/80, no dizziness or sob or chest pain Severity: moderate Worsening Factors: nothing Associated Symptoms: denies symptoms Allergies/Adverse Reactions: Allergies Penicillins Allergy (Verified 05/23/17 15:42) Vancomycin Allergy (Verified 05/23/17 15:42) tape Allergy (Uncoded 05/23/17 15:42) Home Medications: Ambulatory Orders RX: Acetaminophen [Tylenol] 500 mg PO BID PRN 09/29/15 RX: Acyclovir [Zovirax] 400 mg PO BID PRN 09/29/15 RX: Atenolol [Tenormin] 100 mg PO BID 09/29/15 RX: Atorvastatin Calcium [Lipitor] 20 mg PO BEDTIME 09/29/15 RX: B-Complex W/ Folic Acid [Super B Complex Maxi] 1 ea PO DAILY 09/29/15 RX: Celecoxib 200 mg PO DAILY 09/29/15 RX: Clopidogrel Bisulfate [Plavix] 75 mg PO DAILY 09/29/15 RX: Furosemide [Lasix] 40 mg PO DAILY PRN 09/29/15 RX: HYDROcodone 7.5MG/APAP 325MG [[place] 7.5/325] 1 ea PO BID 09/29/15 RX: Insulin Aspart [Novolog Flexpen] See Protocol SC AC 09/29/15 RX: Metformin HCl [Metformin Hydrochloride] 1,000 mg PO BIDFD 09/29/15 RX: Nitroglycerin 0.4 mg Tab [Nitrostat] 1 ea SL .Q5M PRN 09/29/15 RX: Tamsulosin [Flomax] 0.4 mg PO BEDTIME 09/29/15 RX: Vitamin A 8,000 unit PO DAILY 09/29/15 RX: Zolpidem Tartrate [Ambien] 10 mg PO BEDTIME 09/29/15 RX: diphenhydrAMINE HCL [Benadryl] 25 mg PO BEDTIME 09/29/15 RX: Albuterol Sulfate Nebs [Proventil Nebs] 2.5 mg INH Q4HR PRN #30 vial 09/30/15 RX: Pyridoxine HCl [Vitamin B6] 100 mg PO DAILY #0 09/30/15 RX: Cholecalciferol [Vitamin D3] 5,000 unit PO DAILY 05/23/17 RX: Cyanocobalamin [Vitamin B-12] 1,000 mcg PO DAILY 05/23/17 RX: Fenofibrate 160 mg PO DAILY 05/23/17 RX: Gabapentin 900 mg PO BID 05/23/17 RX: Glipizide 5 mg PO DAILYBK 05/23/17 RX: Insulin Glargine [Toujeo Solostar] 60 unit SC BID 05/23/17 RX: Isosorbide Mononitrate [Isosorbide Mononitrate ER] 30 mg PO DAILY 05/23/17 RX: Lisinopril 40 mg PO DAILY 05/23/17 RX: Magnesium Oxide (mg Supplement [Magnesium Oxide] 400 mg PO DAILY 05/23/17 RX: Niacin 500 mg PO DAILY 05/23/17 RX: Ondansetron HCl [Zofran] 4 mg PO TID PRN 05/23/17 RX: Potassium Chloride [Potassium Chloride ER] 20 meq PO DAILY 05/23/17 RX: Vitamin E [Natural Vitamin E] 1,000 unit PO DAILY 05/23/17 Citalopram Hydrobromide [Citalopram] 20 mg PO DAILY 06/09/19 Darzalex 1,720 mg IV BIW 06/09/19 Dicyclomine HCl [Dicyclomine Hydrochloride] 20 mg PO TID PRN 06/09/19 Esomeprazole Magnesium [Nexium] 40 mg PO DAILY 06/09/19 Gamunex 45 gm IV MONTHLY 06/09/19 Rivaroxaban [Xarelto] 20 mg PO DAILY 06/09/19 Review of Systems - Review of Systems Constitutional: States: no symptoms reported EENTM: States: no symptoms reported Respiratory: States: no symptoms reported Cardiology: States: see HPI Gastrointestinal/Abdominal: States: no symptoms reported Genitourinary: States: no symptoms reported Musculoskeletal: States: no symptoms reported Skin: States: no symptoms reported Neurological: States: no symptoms reported Endocrine: States: no symptoms reported Hematologic/Lymphatic: States: no symptoms reported Past Medical History (General) - Patient Medical History Hx Seizures: No Hx Stroke: No Hx Asthma: Yes Hx of COPD: Yes Hx Cardiac Disorders: Yes - Hypercholesterolemia; ASHD Hx Congestive Heart Failure: Yes Hx Pacemaker: No Hx Hypertension: Yes Hx Diabetes: Yes Hx Gastroesophageal Reflux: Yes Hx Renal Disease: Yes Hx Cancer: Yes - Multiple myeloma, currently receiving tx's (05/2019) Hx MRSA: No MRSA Source:: Wound - Vaccination History Hx Tetanus, Diphtheria Vaccination: Yes Hx Influenza Vaccination: No Hx Pneumococcal Vaccination: Yes - 2017 - Social History Hx Tobacco Use: Yes - Quit around 1978 Hx Alcohol Use: No Hx Substance Use: No Hx Substance Use Treatment: No Hx Depression: No Hx Physical Abuse: No Hx Emotional Abuse: No Hx Suspected Abuse: No Family Medical History - Family History Father Living Status: Age at (years of age): 53 Hx Cardiac Disease: Yes Mother Family History: Unknown Living Status: Hx Family Asthma: Yes Hx Family;Other: Dementia Physical Exam - Physical Exam General Appearance: Alert, Comfortable Eye Exam: bilateral normal Ears, Nose, Throat: normal ENT inspection Neck: non-tender, full range of motion, supple Respiratory: chest non-tender, lungs clear, normal breath sounds, no respiratory distress, no accessory muscle use Cardiovascular/Chest: regular rate, rhythm, no edema, no gallop, no JVD Gastrointestinal/Abdominal: non tender, soft Back Exam: normal inspection, no CVA tenderness, no vertebral tenderness Extremity: normal range of motion, non-tender, normal inspection, no pedal edema Neurologic: no motor/sensory deficits, alert, normal mood/affect, oriented x 3 Skin Exam: normal color Lymphatic: no adenopathy Progress - Results/Orders Results/Orders: 06/09/19 14:46 Sodium Chloride 0.9% (Flush) [Saline Flush Syringe] 10 ml IV PRN PRN EKG Stat Pulse Ox Stat 06/09/19 16:04 Head [CT] Stat Laboratory Results - last 24 hr 06/09/19 14:46 WBC 5.9 RBC 3.22 L Hgb 11.5 L Hct 34.2 L MCV 106.3 H MCH 35.9 H MCHC 33.8 RDW 14.6 H Plt Count 133 MPV 8.8 Absolute Neuts (auto) 4.20 Absolute Lymphs (auto) 0.90 L Absolute Monos (auto) 0.70 Absolute Eos (auto) 0.00 Absolute Basos (auto) 0.10 Neutrophils % 72.1 Lymphocytes % 15.2 L Monocytes % 11.2 H Eosinophils % 0.6 L Basophils % 0.9 PT 13.3 H INR 1.33 H PTT (SP) 23.1 Sodium 135 Potassium 5.3 H Chloride 105 Carbon Dioxide 19 L Anion Gap 16.3 BUN 19 H Creatinine 1.38 H BUN/Creatinine Ratio 13.8 Random Glucose 240 H Serum Osmolality 280.2 Calcium 9.0 Magnesium 1.4 L Creatine Kinase 75 CK-MB (CK-2) 2.0 CK-MB (CK-2) % Not Reportable Troponin I < 0.02 - EKG/XRAY/CT EKG: Sinus, no ST T wave changes Departure - Departure Clinical Impression: Hypotension Time of Disposition: 16:13 Disposition: Discharge to Home or Self Care Condition: Good Departure Forms: ED Discharge - Pt. Copy, Patient Portal Self Enrollment Instructions: DI for High Blood Pressure Diet: resume usual diet Activity: increase activity as tolerated, walking as tolerated Referrals: RAFAEL RODRÍGUEZ MD [Primary Care Provider] - 1-2 Weeks Home Medications: Ambulatory Orders RX: Acetaminophen [Tylenol] 500 mg PO BID PRN 09/29/15 RX: Acyclovir [Zovirax] 400 mg PO BID PRN 09/29/15 RX: Atenolol [Tenormin] 100 mg PO BID 09/29/15 RX: Atorvastatin Calcium [Lipitor] 20 mg PO BEDTIME 09/29/15 RX: B-Complex W/ Folic Acid [Super B Complex Maxi] 1 ea PO DAILY 09/29/15 RX: Celecoxib 200 mg PO DAILY 09/29/15 RX: Clopidogrel Bisulfate [Plavix] 75 mg PO DAILY 09/29/15 RX: Furosemide [Lasix] 40 mg PO DAILY PRN 09/29/15 RX: HYDROcodone 7.5MG/APAP 325MG [[place] 7.5/325] 1 ea PO BID 09/29/15 RX: Insulin Aspart [Novolog Flexpen] See Protocol SC AC 09/29/15 RX: Metformin HCl [Metformin Hydrochloride] 1,000 mg PO BIDFD 09/29/15 RX: Nitroglycerin 0.4 mg Tab [Nitrostat] 1 ea SL .Q5M PRN 09/29/15 RX: Tamsulosin [Flomax] 0.4 mg PO BEDTIME 09/29/15 RX: Vitamin A 8,000 unit PO DAILY 09/29/15 RX: Zolpidem Tartrate [Ambien] 10 mg PO BEDTIME 09/29/15 RX: diphenhydrAMINE HCL [Benadryl] 25 mg PO BEDTIME 09/29/15 RX: Albuterol Sulfate Nebs [Proventil Nebs] 2.5 mg INH Q4HR PRN #30 vial 09/30/15 RX: Pyridoxine HCl [Vitamin B6] 100 mg PO DAILY #0 09/30/15 RX: Cholecalciferol [Vitamin D3] 5,000 unit PO DAILY 05/23/17 RX: Cyanocobalamin [Vitamin B-12] 1,000 mcg PO DAILY 05/23/17 RX: Fenofibrate 160 mg PO DAILY 05/23/17 RX: Gabapentin 900 mg PO BID 05/23/17 RX: Glipizide 5 mg PO DAILYBK 05/23/17 RX: Insulin Glargine [Toujeo Solostar] 60 unit SC BID 05/23/17 RX: Isosorbide Mononitrate [Isosorbide Mononitrate ER] 30 mg PO DAILY 05/23/17 RX: Lisinopril 40 mg PO DAILY 05/23/17 RX: Magnesium Oxide (mg Supplement [Magnesium Oxide] 400 mg PO DAILY 05/23/17 RX: Niacin 500 mg PO DAILY 05/23/17 RX: Ondansetron HCl [Zofran] 4 mg PO TID PRN 05/23/17 RX: Potassium Chloride [Potassium Chloride ER] 20 meq PO DAILY 05/23/17 RX: Vitamin E [Natural Vitamin E] 1,000 unit PO DAILY 05/23/17 Citalopram Hydrobromide [Citalopram] 20 mg PO DAILY 06/09/19 Darzalex 1,720 mg IV BIW 06/09/19 Dicyclomine HCl [Dicyclomine Hydrochloride] 20 mg PO TID PRN 06/09/19 Esomeprazole Magnesium [Nexium] 40 mg PO DAILY 06/09/19 Gamunex 45 gm IV MONTHLY 06/09/19 Rivaroxaban [Xarelto] 20 mg PO DAILY 06/09/19 Additional Instructions: Follow up PCP in 1-2 days Hold blood presurre medications Monitor blood pressure every 6 hours Return to ER if blood pressure low or any other medical complain
--- NOTE | 2019-06-09 17:08 | CT ---
EXAM: CT head without contrast CLINICAL INDICATION: Syncope COMPARISON: There is no previous study for comparison. TECHNIQUE: The CT scan was done using contiguous axial 2.5 mm sections through the brain. This exam was performed according to our departmental dose-optimization program, which includes automated exposure control, adjustment of the mA and/or kV according to patient size and/or use of iterative reconstruction technique. FINDINGS: There is no midline shift, mass effect, or extraaxial fluid collection. There is no evidence of acute intracranial hemorrhage, mass lesion, or cerebral edema. The ventricles and cortical sulci are normal for the patient's age. Bone window images reveal no evidence of a skull fracture. IMPRESSION: No evidence of an acute intracranial process. Electronically signed by: Miko Gabriel MD 06/09/2019 5:07 PM NURSING STAFF DEVELOPMENT COORDINATOR
[2019-06-09 17:13] VITALS: BP 146/79; O2SAT 98
== END 2019-06-09 17:13 | disposition home or self-care (01) ==
LOC: ER 14:26
DX: I95.9 Hypotension, unspecified (principal); J44.9 Chronic obstructive pulmonary disease, unspecified; E78.00 Pure hypercholesterolemia, unspecified; I25.10 Atherosclerotic heart disease of native coronary artery without angina pectoris; I50.9 Heart failure, unspecified; I13.0 Hypertensive heart and chronic kidney disease with heart failure and stage 1 through stage 4 chronic kidney disease, or unspecified chronic kidney disease; E11.22 Type 2 diabetes mellitus with diabetic chronic kidney disease; N18.9 Chronic kidney disease, unspecified; K21.9 Gastro-esophageal reflux disease without esophagitis; C90.00 Multiple myeloma not having achieved remission; Z87.891 Personal history of nicotine dependence; Z79.899 Other long term (current) drug therapy; Z79.01 Long term (current) use of anticoagulants; Z79.4 Long term (current) use of insulin; Z88.0 Allergy status to penicillin
CPT/HCPCS: 36415; 70450; 80048; 82550; 82553; 84484; 85025; 85610; 85730; 93005; 94760; J7030

== ENCOUNTER 2019-07-29 12:43 | Emergency (ER) | payer MEDICARE ==
[2019-07-29] MEDS ORDERED: SODIUM CHLORIDE 0.9% (FLUSH) 10 ML SYG IV ONE (13:00)
--- NOTE | 2019-07-29 13:03 | ED.PDOC ---
History of Present Illness - General Chief Complaint: Fever Stated Complaint: fever Time Seen by Provider: 07/29/19 12:49 Source: patient - History of Present Illness Initial Comments: 69-year-old male with history of multiple myeloma currently on every other week chemotherapy presents to the emergency Department with fever. He reports starting 3 days ago he has been having intermittent fever and chills with a measured temperature maximum of 102 taken yesterday. He denies any cough, congestion, abdominal pain or vomiting. He reports diarrhea which is normal for him because of his medications. He has not been around any known ill contacts. Symptoms are currently moderate in severity and nothing he does seems to make them better or worse. For the last month he has also noticed that his blood sugar and blood pressure have been lower and he has been decreasing his medications as directed by his primary care physician for this. He is also scheduled to have a heart catheterization later this week by his fourdrinier wire weaver due to persistent intermittent chest pain. He denies any chest pain currently. His oncologist and chemo are done in [place], [place]. Review of Systems - Review of Systems Constitutional: States: chills, fever EENTM: Denies: nose congestion, throat pain Respiratory: Denies: cough, wheezing Cardiology: Denies: chest pain, palpitations Gastrointestinal/Abdominal: States: diarrhea, nausea. Denies: abdominal pain, vomiting Genitourinary: Denies: dysuria, hematuria Musculoskeletal: Denies: joint pain, muscle pain Skin: Denies: lesions, rash Neurological: Denies: headache, numbness, weakness Past Medical History (General) - Patient Medical History Hx Seizures: No Hx Stroke: No Hx Asthma: Yes Hx of COPD: Yes Hx Cardiac Disorders: Yes - Hypercholesterolemia; ASHD Hx Congestive Heart Failure: Yes Hx Pacemaker: No Hx Hypertension: Yes Hx Diabetes: Yes Hx Gastroesophageal Reflux: Yes Hx Renal Disease: Yes Hx Cancer: Yes - Multiple myeloma, currently receiving tx's (05/2019) Hx MRSA: No MRSA Source:: Wound - Vaccination History Hx Tetanus, Diphtheria Vaccination: Yes Hx Influenza Vaccination: No Hx Pneumococcal Vaccination: Yes - 2017 - Social History Hx Tobacco Use: Yes - Quit around 1978 Hx Alcohol Use: No Hx Substance Use: No Hx Substance Use Treatment: No Hx Depression: No Hx Physical Abuse: No Hx Emotional Abuse: No Hx Suspected Abuse: No Family Medical History - Family History Mother Family History: Unknown Living Status: Hx Family Asthma: Yes Hx Family;Other: Dementia Father Living Status: Age at (years of age): 53 Hx Cardiac Disease: Yes Physical Exam - Physical Exam General Appearance: Alert, Well Developed, Well Nourished Eye Exam: bilateral normal ENT Exam: normal ENT inspection, pharynx normal Neck: normal inspection, trachea midline Respiratory: lungs clear, normal breath sounds, no respiratory distress, no accessory muscle use, other - Port R chest wall without erythema, edema or warmth Cardiovascular/Chest: regular rate, rhythm, no edema Gastrointestinal/Abdominal: normal bowel sounds, non tender, soft Extremity: normal inspection 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 Patient has have voiced understanding and agree. 07/29/19 15:00 Patient recheck: All lab and CT results so far discussed with the patient along with plan to contact his oncologist. 07/29/19 15:[address] Ramirez, the patient's oncologist, regarding the patient's presentation and lab and imaging findings. He recommends starting the patient on prophylactic antibiotics such as Levaquin and feels that the patient is fine to be discharged home with no further specific precautions. 07/29/19 15:17 Patient has were updated on the conversation with Dr. Ramirez along with plan for discharge with oral Levaquin. He is encouraged to follow up with his primary care physician, fourdrinier wire weaver and oncologist. He is encouraged to return to the emergency department immediately for any significant worsening of symptoms or other concerns. The patient and his at the bedside who voice understanding and agree with the treatment plan. - Results/Orders Results/Orders: Laboratory Results - last 24 hr 07/29/19 07/29/19 07/29/19 13:18 13:18 13:18 WBC 4.5 L RBC 3.59 L Hgb 12.4 L Hct 37.1 L MCV 103.5 H MCH 34.5 H MCHC 33.3 RDW 14.2 Plt Count 106 L MPV 8.7 Absolute Neuts (auto) 3.70 Absolute Lymphs (auto) 0.40 L Absolute Monos (auto) 0.30 Absolute Eos (auto) 0.00 Absolute Basos (auto) 0.00 Neutrophils % 81.6 H Lymphocytes % 9.9 L Monocytes % 7.7 Eosinophils % 0.6 L Basophils % 0.2 PT 11.0 H INR 1.11 Sodium 135 Potassium 4.0 Chloride 99 L Carbon Dioxide 24 Anion Gap 16.0 BUN 19 H Creatinine 1.09 BUN/Creatinine Ratio 17.4 Random Glucose 215 H Serum Osmolality 278.8 Lactic Acid Calcium 9.2 Total Bilirubin 0.9 AST 94 H ALT 156 H Alkaline Phosphatase 42 Creatine Kinase 69 CK-MB (CK-2) 1.5 CK-MB (CK-2) % Not Reportable Troponin I 0.02 Serum Total Protein 7.5 Albumin 3.6 Globulin 3.9 H Albumin/Globulin Ratio 0.9 L Urine Color Urine Appearance Urine pH Ur Specific [place] Urine Protein Urine Glucose (UA) Urine Ketones Urine Blood Urine Nitrite Urine Bilirubin Urine Urobilinogen Ur Leukocyte Esterase Urine RBC Urine WBC Ur Epithelial Cells Urine Bacteria Urine Mucus 07/29/19 07/29/19 13:18 14:00 WBC RBC Hgb Hct MCV MCH MCHC RDW Plt Count MPV Absolute Neuts (auto) Absolute Lymphs (auto) Absolute Monos (auto) Absolute Eos (auto) Absolute Basos (auto) Neutrophils % Lymphocytes % Monocytes % Eosinophils % Basophils % PT INR Sodium Potassium Chloride Carbon Dioxide Anion Gap BUN Creatinine BUN/Creatinine Ratio Random Glucose Serum Osmolality Lactic Acid 1.8 Calcium Total Bilirubin AST ALT Alkaline Phosphatase Creatine Kinase CK-MB (CK-2) CK-MB (CK-2) % Troponin I Serum Total Protein Albumin Globulin Albumin/Globulin Ratio Urine Color Dk yellow Urine Appearance Clear Urine pH 5.5 Ur Specific [place] 1.020 Urine Protein 30 Urine Glucose (UA) 500 H Urine Ketones Negative Urine Blood Negative Urine Nitrite Negative Urine Bilirubin Negative Urine Urobilinogen 0.2 Ur Leukocyte Esterase Negative Urine RBC 1-3 Urine WBC 0-1 Ur Epithelial Cells 1-3 Urine Bacteria 0 Urine Mucus Small 2 view CXR: IMPRESSION: Questionable 2 cm airspace opacity in the left lower lung. If concerned CT chest can be performed for further evaluation. Electronically signed by: Lindsey Hinton MD 07/29/2019 1:27 PM QUALITY ASSURANCE SUPERVISOR [employer] CTA Chest: IMPRESSION: 1. No evidence of a pulmonary embolus is seen. 2. Small probable noncalcified granulomas are observed in the left lower lobe and remain unchanged from the remote exam Electronically signed by: Joby Hartley MD 07/29/2019 2:52 PM QUALITY ASSURANCE SUPERVISOR [employer] CT Abd/Pelvis: IMPRESSION: 1. Hepatic steatosis. 2. Cholecystectomy. 3. Uncomplicated diverticulosis of the colon. Electronically signed by: Joby Hartley MD 07/29/2019 2:43 PM QUALITY ASSURANCE SUPERVISOR [employer] EKG interpreted by myself at 1309. Sinus rhythm rate 76. Normal axis. Normal intervals. No ST elevation and no acute ischemic changes. Departure - Departure Clinical Impression: Fever in adult Time of Disposition: 15:18 Disposition: Discharge to Home or Self Care Condition: Good Departure Forms: ED Discharge - Pt. Copy, Patient Portal Self Enrollment Instructions: DI for Fever (Symptom) -- Adult Referrals: RAFAEL RODRÍGUEZ MD [Primary Care Provider] - 1-5 Days Prescriptions: Levofloxacin [Levaquin] 750 mg PO DAILY #6 tablet Home Medications: Ambulatory Orders Acetaminophen [Tylenol] 1,000 mg PO BID PRN 09/29/15 Acyclovir [Zovirax] 400 mg PO BID PRN 09/29/15 Atenolol [Tenormin] 25 mg PO DAILY 09/29/15 Atorvastatin Calcium [Lipitor] 20 mg PO BEDTIME 09/29/15 B-Complex W/ Folic Acid [Super B Complex Maxi] 1 ea PO DAILY 09/29/15 Celecoxib 200 mg PO DAILY 09/29/15 Clopidogrel Bisulfate [Plavix] 75 mg PO DAILY 09/29/15 Furosemide [Lasix] 40 mg PO DAILY PRN 09/29/15 HYDROcodone 7.5MG/APAP 325MG [[place] 7.5/325] 1 ea PO BID 09/29/15 Metformin HCl [Metformin Hydrochloride] 1,000 mg PO BIDFD 09/29/15 Nitroglycerin 0.4 mg Tab [Nitrostat] 1 ea SL .Q5M PRN 09/29/15 Tamsulosin [Flomax] 0.4 mg PO BEDTIME 09/29/15 Vitamin A 24,000 unit PO DAILY 09/29/15 Zolpidem Tartrate [Ambien] 10 mg PO BEDTIME 09/29/15 diphenhydrAMINE HCL [Benadryl] 25 mg PO BEDTIME 09/29/15 Albuterol Sulfate Nebs [Proventil Nebs] 2.5 mg INH Q4HR PRN #30 vial 09/30/15 Pyridoxine HCl [Vitamin B6] 100 mg PO DAILY #0 09/30/15 Cyanocobalamin [Vitamin B-12] 2,500 mcg PO DAILY 05/23/17 Fenofibrate 160 mg PO DAILY 05/23/17 Gabapentin 900 mg PO BID 05/23/17 Glipizide 5 mg PO DAILYBK 05/23/17 Insulin Glargine [Toujeo Solostar] 40 unit SC BID 05/23/17 Isosorbide Mononitrate [Isosorbide Mononitrate ER] 60 mg PO DAILY 05/23/17 Lisinopril 5 mg PO DAILY 05/23/17 Magnesium Oxide (mg Supplement [Magnesium Oxide] 250 mg PO DAILY 05/23/17 Niacin 500 mg PO DAILY 05/23/17 Ondansetron HCl [Zofran] 4 mg PO TID PRN 05/23/17 Potassium Chloride [Potassium Chloride ER] 10 meq PO DAILY 05/23/17 Vitamin E [Natural Vitamin E] 670 unit PO DAILY 05/23/17 Citalopram Hydrobromide [Citalopram] 20 mg PO DAILY 06/09/19 Darzalex 1,720 mg IV BIW 06/09/19 Dicyclomine HCl [Dicyclomine Hydrochloride] 20 mg PO TID PRN 06/09/19 Esomeprazole Magnesium [Nexium] 40 mg PO DAILY 06/09/19 Rivaroxaban [Xarelto] 20 mg PO DAILY 06/09/19 Alprazolam 0.5 mg PO BEDTIME 07/29/19 Immune Globulin (Human) IV [Flebogamma Dif] 0.5 gm IV MONTHLY 07/29/19 Insulin Lispro [Humalog Kwikpen] See Protocol SC TID 07/29/19 Levofloxacin [Levaquin] 750 mg PO DAILY #6 tablet 07/29/19 Nystatin Suspension [Nystatin] 10 ml MT Q4HR 07/29/19 Prednisone 10 mg PO PRN 07/29/19 Additional Instructions: Take medications as directed. Follow-up with your fourdrinier wire weaver, oncologist as well as your primary care physician as soon as possible. Return to the emergency department immediately for any significant worsening of symptoms or other concerns.
--- NOTE | 2019-07-29 13:28 | RAD ---
EXAM DESCRIPTION: Chest,2 Views CLINICAL HISTORY: 69 years Male, fever COMPARISON: Radiograph of the chest dated 12/03/2018. TECHNIQUE: PA and lateral radiographs of the chest were obtained. FINDINGS: Right chest [id number] is noted. Trachea is midline.The cardiomediastinal silhouette is normal in size. The pulmonary vasculature is within normal limits.The lungs are clear with no acute consolidation. Questionable 2 cm airspace opacity in the left lower lung. No evidence of pleural effusions.No evidence of pneumothorax. IMPRESSION: Questionable 2 cm airspace opacity in the left lower lung. If concerned CT chest can be performed for further evaluation. Electronically signed by: Lindsey Hinton MD 07/29/2019 1:27 PM CONCESSION SUPERVISOR
--- NOTE | 2019-07-29 13:54 | RAD ---
EXAM DESCRIPTION: Chest,2 Views CLINICAL HISTORY: 69 years Male, fever COMPARISON: Radiograph of the chest dated 12/03/2018. TECHNIQUE: PA and lateral radiographs of the chest were obtained. FINDINGS: Right chest [id number] is noted. Trachea is midline.The cardiomediastinal silhouette is normal in size. The pulmonary vasculature is within normal limits.The lungs are clear with no acute consolidation. Questionable 2 cm airspace opacity in the left lower lung. No evidence of pleural effusions.No evidence of pneumothorax. IMPRESSION: Questionable 2 cm airspace opacity in the left lower lung. If concerned CT chest can be performed for further evaluation. Electronically signed by: Lindsey Hinton MD 07/29/2019 1:27 PM PACKING HOUSE LABORER
--- NOTE | 2019-07-29 13:54 | RAD ---
EXAM DESCRIPTION: Chest,2 Views CLINICAL HISTORY: 69 years Male, fever COMPARISON: Radiograph of the chest dated 12/03/2018. TECHNIQUE: PA and lateral radiographs of the chest were obtained. FINDINGS: Right chest [id number] is noted. Trachea is midline.The cardiomediastinal silhouette is normal in size. The pulmonary vasculature is within normal limits.The lungs are clear with no acute consolidation. Questionable 2 cm airspace opacity in the left lower lung. No evidence of pleural effusions.No evidence of pneumothorax. IMPRESSION: Questionable 2 cm airspace opacity in the left lower lung. If concerned CT chest can be performed for further evaluation. Electronically signed by: Lindsey Hinton MD 07/29/2019 1:27 PM [employer]
[2019-07-29 14:20] VITALS: TEMP 96.8
--- NOTE | 2019-07-29 14:45 | CT ---
EXAM DESCRIPTION: Abdomen/Pelvis w/Contrast CLINICAL HISTORY: 69 years Male, fever/elevated LFTs COMPARISON: 08 October 2018 TECHNIQUE: Transaxial images were obtained with intravenous contrast medium without oral contrast media. Sagittal and coronal reconstruction was performed.This exam was performed according to our departmental dose-optimization program, which includes automated exposure control, adjustment of the mA and/or kV according to patient size and/or use of iterative reconstruction technique. FINDINGS: The lung bases are clear. Dense coronary artery calcification is observed. Hepatic steatosis is noted. The gallbladder is been previously removed. Surgical clips are seen in the region of gallbladder fossa. No biliary ductal dilatation is observed. The spleen is normal in appearance. No adrenal masses are detected. The pancreas is normal in appearance. Imaging of the kidneys reveals no evidence of hydronephrosis mass cyst or calcification. Calcific atherosclerotic changes observed in the abdominal aorta without evidence of aneurysmal dilatation. The appendix is identified and is normal in appearance. Diverticulosis of the colon is observed without evidence of diverticulitis. No free fluid is observed. No inguinal region abnormality is detected. Degenerative changes are observed in the lumbar spine. IMPRESSION: 1. Hepatic steatosis. 2. Cholecystectomy. 3. Uncomplicated diverticulosis of the colon. Electronically signed by: Joby Hartley MD 07/29/2019 2:43 PM TUBE FORMER OPERATOR
--- NOTE | 2019-07-29 14:57 | CT ---
EXAM DESCRIPTION: CTA Chest CLINICAL HISTORY: 69 years Male, fever/abnormal CXR COMPARISON: Chest x-ray dated 29 July 2019 TECHNIQUE: Transaxial images were obtained during injector demonstrated intravenous contrast media. Multiplanar was performed. No 3-D reconstruction was performed.This exam was performed according to our departmental dose-optimization program, which includes automated exposure control, adjustment of the mA and/or kV according to patient size and/or use of iterative reconstruction technique. FINDINGS: The thyroid is normal in appearance. Some coronary artery calcification is noted. Hepatic steatosis is observed. No adrenal masses are detected. A previously observed nodule in the left lower lobe is again identified and remains unchanged. No evidence of a pulmonary embolus is seen. No aortic abnormality is seen. Degenerative changes are seen in the thoracic spine. Direct comparison is made to a remote scan dated 28 September 2015 and pulmonary nodules also remain unchanged from the remote exam. IMPRESSION: 1. No evidence of a pulmonary embolus is seen. 2. Small probable noncalcified granulomas are observed in the left lower lobe and remain unchanged from the remote exam Electronically signed by: Joby Hartley MD 07/29/2019 2:52 PM [facility]
[2019-07-29] MEDS ORDERED: levoFLOXacin 500 MG TAB PO ONE (15:20)
[2019-07-29 16:38] VITALS: BP 143/81; O2SAT 98
== END 2019-07-29 15:30 | disposition home or self-care (01) ==
LOC: ER 12:43
DX: R50.9 Fever, unspecified (principal); C90.00 Multiple myeloma not having achieved remission; J44.9 Chronic obstructive pulmonary disease, unspecified; E78.00 Pure hypercholesterolemia, unspecified; I25.10 Atherosclerotic heart disease of native coronary artery without angina pectoris; I50.9 Heart failure, unspecified; N18.9 Chronic kidney disease, unspecified; E11.22 Type 2 diabetes mellitus with diabetic chronic kidney disease; I13.0 Hypertensive heart and chronic kidney disease with heart failure and stage 1 through stage 4 chronic kidney disease, or unspecified chronic kidney disease; K21.9 Gastro-esophageal reflux disease without esophagitis; Z92.21 Personal history of antineoplastic chemotherapy; Z87.891 Personal history of nicotine dependence; Z79.899 Other long term (current) drug therapy; Z79.4 Long term (current) use of insulin; Z79.01 Long term (current) use of anticoagulants

== ENCOUNTER → 2019-08-28 | Outpatient (CLI) | payer MEDICARE | LOC: GMAE 10:21 | PROVIDERS: ATTEND Family Medicine | DX: Z12.5 Encounter for screening for malignant neoplasm of prostate (principal); E03.9 Hypothyroidism, unspecified; I10 Essential (primary) hypertension; E11.8 Type 2 diabetes mellitus with unspecified complications; E78.2 Mixed hyperlipidemia | CPT/HCPCS: 84439; 84443; 84481; G0103 ==

== ENCOUNTER 2019-11-21 18:59 | Inpatient (IN) | payer MEDICARE ==
[2019-11-21] MEDS ORDERED: IBUPROFEN 200 MG TAB PO ONE (19:10)
[2019-11-21] MEDS ORDERED: ACETAMINOPHEN 325 MG TAB PO ONE (19:10)
[2019-11-21] MEDS ORDERED: MEROPENEM 1 GM in SODIUM CHL 0.9% 50ML MIN-BAG+ 50 ML IVPB ONE (19:12)
[2019-11-21] MEDS ORDERED: SODIUM CHLORIDE 0.9% 1000ML 500 ML IVS ONE ×2 (19:13→20:00)
[2019-11-21] MEDS ORDERED: SODIUM CHL 0.9% 50ML MIN-BAG+ 50 ML IVPB ONE (19:22)
[2019-11-21] MEDS ORDERED: MEROPENEM 1 GM VIAL IVPB ONE (19:22)
[2019-11-21] MEDS ORDERED: METOPROLOL TARTRATE INJ 5 MG/5 ML VIAL IV ONE (20:02)
[2019-11-21] MEDS ORDERED: methylPREDNISolone SODIUM SUC 125 MG/2 ML VIAL IV ONE (20:06)
--- NOTE | 2019-11-21 20:17 | RAD ---
EXAM DESCRIPTION: Chest,1 View CLINICAL HISTORY: 69 years Male fever, confusion, tachycardai COMPARISON: July 29, 2019. TECHNIQUE: AP view of the chest was obtained. FINDINGS: Cardiac silhouette is enlarged. Central vessels are moderately increased. Right central venous catheter is present with the tip seen at the atrial caval junction. Mild eventration right hemidiaphragm. Infrahilar airspace opacities bilaterally unchanged. No effusions bilaterally. No pneumothorax. IMPRESSION: Enlarged heart with moderate central congestion. Atelectatic change versus infiltrate infrahilar regions bilaterally unchanged. Electronically signed by: Adalgisa Delarosa MD 11/21/2019 7:59 PM CDT
[2019-11-21] MEDS ORDERED: METOPROLOL TARTRATE 50 MG TAB PO ONE (20:36)
[2019-11-21] MEDS ORDERED: SODIUM CHLORIDE 0.9% 1000ML 1,000 ML IVS ONE (20:39)
[2019-11-21] MEDS ORDERED: CLINDAMYCIN IV 600MG 600 MG in PREMIX BAG 1 BAG IVPB ONE (20:41)
[2019-11-21] MEDS ORDERED: CLINDAMYCIN IV 600MG 50 ML IVPB ONE (20:43)
[2019-11-21] MEDS ORDERED: SOD POLYSTYRENE SULFONATE 15 GM/60 ML BTTL PO ONE (20:48)
--- NOTE | 2019-11-21 22:34 | ED.PDOC ---
History of Present Illness - General Chief Complaint: Fever Stated Complaint: fever, sob Time Seen by Provider: 11/21/19 19:00 Source: patient, family Exam Limitations: clinical condition - History of Present Illness Initial Comments: The patient is a 69-year-old male presented emergency room secondary to confusion and a fever up to 104.5. The patient is immunocompromise due to his multiple myeloma and treatments related to it. The patient received a treatment last week in [place]. The patient saw his primary care doctor yesterday and was starting the treatment for strep throat. He did have a coronavirus sample sent off. In spite of the treatment, his fever is gotten worse. Upon arrival here the patient is significantly tachypneic, tachycardic, febrile and confused. He is diaphoretic. Blood pressures are markedly elevated into the 190s on the systolic end. Heart rates are in the 140s to 150s and appear to be sinus tachycardia on telemetry. He is not having any chest pain. Lung sounds are wet however indicating pulmonary edema. Supplemental oxygen was started and the patient was given medications to bring the blood pressure and heart rate down. Additionally his fever was treated. Mental status improved with treatment of the fever. The patient has had sepsis of unknown origin in the past. He has pancytopenia related to the multiple myeloma and chronic elevation of his LFTs likely related as well. He does have some mild baseline chronic renal insufficiency. Timing/Duration: other - 2 Days Severity: severe Improving Factors: nothing Worsening Factors: nothing Associated Symptoms: fever/chills, other - Sore throat Allergies/Adverse Reactions: Allergies Cephalexin Allergy (Verified 07/29/19 13:23) Latex Allergy (Verified 07/29/19 13:23) Penicillins Allergy (Verified 05/23/17 15:42) Vancomycin Allergy (Verified 05/23/17 15:42) tape Allergy (Uncoded 05/23/17 15:42) Home Medications: Ambulatory Orders Acetaminophen [Tylenol] 1,000 mg PO BID PRN 09/29/15 Acyclovir [Zovirax] 400 mg PO BID PRN 09/29/15 Atenolol [Tenormin] 25 mg PO DAILY 09/29/15 Atorvastatin Calcium [Lipitor] 20 mg PO BEDTIME 09/29/15 B-Complex W/ Folic Acid [Super B Complex Maxi] 1 ea PO DAILY 09/29/15 Celecoxib 200 mg PO DAILY 09/29/15 Clopidogrel Bisulfate [Plavix] 75 mg PO DAILY 09/29/15 Furosemide [Lasix] 40 mg PO DAILY PRN 09/29/15 HYDROcodone 7.5MG/APAP 325MG [[place] 7.5/325] 1 ea PO BID 09/29/15 Metformin HCl [Metformin Hydrochloride] 1,000 mg PO BIDFD 09/29/15 Nitroglycerin 0.4 mg Tab [Nitrostat] 1 ea SL .Q5M PRN 09/29/15 Tamsulosin [Flomax] 0.4 mg PO BEDTIME 09/29/15 Vitamin A 24,000 unit PO DAILY 09/29/15 Zolpidem Tartrate [Ambien] 10 mg PO BEDTIME 09/29/15 diphenhydrAMINE HCL [Benadryl] 25 mg PO BEDTIME 09/29/15 Albuterol Sulfate Nebs [Proventil Nebs] 2.5 mg INH Q4HR PRN #30 vial 09/30/15 Pyridoxine HCl [Vitamin B6] 100 mg PO DAILY #0 09/30/15 Cyanocobalamin [Vitamin B-12] 2,500 mcg PO DAILY 05/23/17 Fenofibrate 160 mg PO DAILY 05/23/17 Gabapentin 900 mg PO BID 05/23/17 Glipizide 5 mg PO DAILYBK 05/23/17 Insulin Glargine [Toujeo Solostar] 40 unit SC BID 05/23/17 Isosorbide Mononitrate [Isosorbide Mononitrate ER] 60 mg PO DAILY 05/23/17 Lisinopril 5 mg PO DAILY 05/23/17 Magnesium Oxide (mg Supplement [Magnesium Oxide] 250 mg PO DAILY 05/23/17 Niacin 500 mg PO DAILY 05/23/17 Ondansetron HCl [Zofran] 4 mg PO TID PRN 05/23/17 Potassium Chloride [Potassium Chloride ER] 10 meq PO DAILY 05/23/17 Vitamin E [Natural Vitamin E] 670 unit PO DAILY 05/23/17 Citalopram Hydrobromide [Citalopram] 20 mg PO DAILY 06/09/19 Darzalex 1,720 mg IV BIW 06/09/19 Dicyclomine HCl [Dicyclomine Hydrochloride] 20 mg PO TID PRN 06/09/19 Esomeprazole Magnesium [Nexium] 40 mg PO DAILY 06/09/19 Rivaroxaban [Xarelto] 20 mg PO DAILY 06/09/19 Alprazolam 0.5 mg PO BEDTIME 07/29/19 Immune Globulin (Human) IV [Flebogamma Dif] 0.5 gm IV MONTHLY 07/29/19 Insulin Lispro [Humalog Kwikpen] See Protocol SC TID 07/29/19 Levofloxacin [Levaquin] 750 mg PO DAILY #6 tablet 07/29/19 Nystatin Suspension [Nystatin] 10 ml MT Q4HR 07/29/19 Prednisone 10 mg PO PRN 07/29/19 Review of Systems - Review of Systems Constitutional: States: chills, diaphoresis, fever, malaise, weakness EENTM: States: throat pain - Mild Respiratory: States: short of breath - He is short of breath here but not yesterday. Cardiology: States: no symptoms reported Gastrointestinal/Abdominal: States: no symptoms reported, abdominal pain - The patient does have chronic abdominal pain related to his multiple myeloma. No new symptoms. Genitourinary: States: no symptoms reported Musculoskeletal: States: no symptoms reported Skin: States: no symptoms reported Neurological: States: see HPI Endocrine: States: no symptoms reported All other Systems: No Change from Baseline Past Medical History (General) - Patient Medical History Hx Seizures: No Hx Stroke: No Hx Dementia: No Hx Asthma: No Hx of COPD: No Hx Cardiac Disorders: Yes Hx Congestive Heart Failure: No Hx Pacemaker: No Hx Hypertension: Yes Hx Thyroid Disease: No Hx Diabetes: Yes Hx Gastroesophageal Reflux: No Hx Renal Disease: No Hx Cancer: Yes - Multimyloma Hx of HIV: No Hx Hepatitis C: No Hx MRSA: Yes MRSA Source:: Skin Surgical History: cholecystectomy, tonsillectomy - Vaccination History Hx Tetanus, Diphtheria Vaccination: No Hx Influenza Vaccination: Yes Hx Pneumococcal Vaccination: Yes - Social History Hx Tobacco Use: Yes Hx Chewing Tobacco Use: No Hx Alcohol Use: No Hx Substance Use: No Hx Substance Use Treatment: No Hx Depression: No Feels Threatened In Home Enviroment: No Feels Threatened In a Relationship: No Hx Physical Abuse: No Hx Emotional Abuse: No Hx Suspected Abuse: No Family Medical History - Family History Mother Family History: Unknown Living Status: Hx Family Asthma: Yes Hx Family;Other: Dementia Father Living Status: Age at (years of age): 53 Hx Cardiac Disease: Yes Physical Exam - Physical Exam General Appearance: Other - The patient is slightly delirious. Very poor attention span. Difficulty answering some simple questions. Eye Exam: bilateral normal Ears, Nose, Throat: hearing grossly normal, normal pharynx Neck: full range of motion, supple Respiratory: respiratory distress, accessory muscle use, rales - Diffuse scattered Cardiovascular/Chest: normal peripheral pulses, no edema, tachycardia Peripheral Pulses: radial,right: 2+, radial,left: 2+ Gastrointestinal/Abdominal: non tender - Obese. No obvious point tenderness to palpation., soft Rectal Exam: deferred Back Exam: no CVA tenderness Extremity: normal range of motion, no calf tenderness, normal capillary refill Neurologic: time study technician II-XII nml as tested, other - Patient is initially disoriented and delirious. This did correct with treatment of the fever. Skin Exam: diaphoresis Comments: Vital Signs - 24 hr 11/21/19 11/21/19 11/21/19 19:10 19:12 20:00 Temperature 104.5 F H Pulse Rate Pulse Rate [ 134 H 127 H 141 H Pulse Ox] Respiratory 36 H 22 20 Rate Blood Pressure 199/108 173/76 [Left Arm] O2 Sat by Pulse 92 L 97 Oximetry 11/21/19 11/21/19 11/21/19 20:24 21:00 22:00 Temperature 100.3 F H 100.0 F H Pulse Rate 127 H 120 H Pulse Rate [ 126 H 127 H 120 H Pulse Ox] Respiratory 20 20 20 Rate Blood Pressure 173/76 131/84 126/66 [Left Arm] O2 Sat by Pulse 97 97 95 Oximetry Progress - Progress Progress: 11/21/19 22:37 The patient is a 69-year-old male presented emergency room in extremely poor condition. The patient presents in delirium and a hypertensive emergency giving some pulmonary edema with CHF exacerbation. He also appears to be septic. The patient is unable to mount a significant leukocytic response secondary to chronic pancytopenia related to his multiple myeloma. He has an immunocompromise state. He also appears to be in acute renal failure with significant lactic acidosis and hyperkalemia. He appears to be asymptomatic from the hyperkalemia as best I can tell. The patient has had sepsis of unknown origin in the past. This is supported by the fever, the heart rate and the lactic acidosis as well as a significant left shift on his blood work. It is possible the sepsis may be from the strep throat. The patient had a coronavirus test sent off with his primary care doctor yesterday. He has not returned yet. In treatment the patient received oxygen upon arrival. He is also received IV and oral metoprolol to help bring blood pressures and heart rates down. This more than anything is helped to reduce the pulmonary edema and CHF exacerbation. Lungs are almost clear at this point. Again source of the sepsis is not definitive at this time. Patient does have significant lactic acidosis. He has received slow flow IV fluids to approximately 1200 cc at this point. He does have acute renal failure which should improve with correction of the hypertension as well as dehydration. The hyperkalemia should also respond to rehydration and a dose of Kayexalate he was given. He does normally take a potassium supplement which will of course need to be held. For the sepsis the patient has been started on meropenem and clindamycin as is broad-spectrum antibiotics given his allergies. Mental status has cleared up significantly with treatment of the fever. The patient also received 1 dose of stress dose Solu-Medrol. Admitting for continued care of the above problems. The patient is obviously a very high risk patient. Critical care time spent on above issues is 40 minutes. james eduardo [id number] - Results/Orders Results/Orders: Laboratory Tests 11/21/19 11/21/19 11/21/19 19:25 19:25 19:25 WBC 5.1 RBC 3.56 L Hgb 12.5 L Hct 37.0 L MCV 104.0 H MCH 35.2 H MCHC 33.8 RDW 14.5 Plt Count 92 L MPV 8.7 Absolute Neuts (auto) 4.70 Absolute Lymphs (auto) 0.30 L Absolute Monos (auto) 0.10 L Absolute Eos (auto) 0.00 Absolute Basos (auto) 0.00 Neutrophils % 91.7 H Lymphocytes % 5.2 L Monocytes % 2.4 Eosinophils % 0.5 L Basophils % 0.2 PT 12.1 H INR 1.22 H PTT (SP) 25.1 Sodium 137 Potassium 6.1 H Chloride 104 Carbon Dioxide 25 Anion Gap 14.1 BUN 27 H Creatinine 1.71 H BUN/Creatinine Ratio 15.8 Random Glucose 250 H Serum Osmolality 287.4 Lactic Acid Calcium 8.4 Total Bilirubin 1.1 H AST 105 H ALT 68 H Alkaline Phosphatase 44 Creatine Kinase 143 CK-MB (CK-2) 2.3 CK-MB (CK-2) % Not Reportable Troponin I 0.02 B-Natriuretic Peptide 161.0 H Serum Total Protein 7.9 Albumin 3.9 Globulin 4.0 H Albumin/Globulin Ratio 1.0 L Urine Color Urine Appearance Urine pH Ur Specific [place] Urine Protein Urine Glucose (UA) Urine Ketones Urine Blood Urine Nitrite Urine Bilirubin Urine Urobilinogen Ur Leukocyte Esterase Urine RBC Urine WBC Ur Epithelial Cells Urine Bacteria 11/21/19 11/21/19 19:25 21:53 WBC RBC Hgb Hct MCV MCH MCHC RDW Plt Count MPV Absolute Neuts (auto) Absolute Lymphs (auto) Absolute Monos (auto) Absolute Eos (auto) Absolute Basos (auto) Neutrophils % Lymphocytes % Monocytes % Eosinophils % Basophils % PT INR PTT (SP) Sodium Potassium Chloride Carbon Dioxide Anion Gap BUN Creatinine BUN/Creatinine Ratio Random Glucose Serum Osmolality Lactic Acid 3.7 H* Calcium Total Bilirubin AST ALT Alkaline Phosphatase Creatine Kinase CK-MB (CK-2) CK-MB (CK-2) % Troponin I B-Natriuretic Peptide Serum Total Protein Albumin Globulin Albumin/Globulin Ratio Urine Color Yellow Urine Appearance Clear Urine pH 5.0 Ur Specific [place] 1.020 Urine Protein 30 Urine Glucose (UA) 100 H Urine Ketones Trace Urine Blood Negative Urine Nitrite Negative Urine Bilirubin Negative Urine Urobilinogen 0.2 Ur Leukocyte Esterase Negative Urine RBC 0 Urine WBC 0-1 Ur Epithelial Cells 1-3 Urine Bacteria 0 Chest x-ray shows chronic changes including infrahilar infiltrates which are not new. There is increased cephalization. Cardiomegaly. Telemetry monitoring shows sinus tachycardia. No evidence of any other significant arrhythmia. Departure - Departure Clinical Impression: Lactic acidosis, Hypertensive emergency, Hyperkalemia, Immunocompromised state, Pancytopenia, Delirium Sepsis Qualifiers: Sepsis type: sepsis due to unspecified organism Sepsis acute organ dysfunction status: with acute organ dysfunction Severe sepsis acute organ dysfunction type: encephalopathy Severe sepsis shock status: without septic shock Qualified Code(s): A41.9 - Sepsis, unspecified organism Pulmonary edema Qualifiers: Chronicity: acute Qualified Code(s): J81.0 - Acute pulmonary edema Acute renal failure Qualifiers: Acute renal failure type: unspecified Qualified Code(s): N17.9 - Acute kidney failure, unspecified Disposition: Admit Patient Condition: Poor Departure Forms: ED Discharge - Pt. Copy, Patient Portal Self Enrollment Referrals: RAFAEL RODRÍGUEZ MD [Primary Care Provider] - 1-2 Weeks Home Medications: Ambulatory Orders Acetaminophen [Tylenol] 1,000 mg PO BID PRN 09/29/15 Acyclovir [Zovirax] 400 mg PO BID PRN 09/29/15 Atenolol [Tenormin] 25 mg PO DAILY 09/29/15 Atorvastatin Calcium [Lipitor] 20 mg PO BEDTIME 09/29/15 B-Complex W/ Folic Acid [Super B Complex Maxi] 1 ea PO DAILY 09/29/15 Celecoxib 200 mg PO DAILY 09/29/15 Clopidogrel Bisulfate [Plavix] 75 mg PO DAILY 09/29/15 Furosemide [Lasix] 40 mg PO DAILY PRN 09/29/15 HYDROcodone 7.5MG/APAP 325MG [[place] 7.5/325] 1 ea PO BID 09/29/15 Metformin HCl [Metformin Hydrochloride] 1,000 mg PO BIDFD 09/29/15 Nitroglycerin 0.4 mg Tab [Nitrostat] 1 ea SL .Q5M PRN 09/29/15 Tamsulosin [Flomax] 0.4 mg PO BEDTIME 09/29/15 Vitamin A 24,000 unit PO DAILY 09/29/15 Zolpidem Tartrate [Ambien] 10 mg PO BEDTIME 09/29/15 diphenhydrAMINE HCL [Benadryl] 25 mg PO BEDTIME 09/29/15 Albuterol Sulfate Nebs [Proventil Nebs] 2.5 mg INH Q4HR PRN #30 vial 09/30/15 Pyridoxine HCl [Vitamin B6] 100 mg PO DAILY #0 09/30/15 Cyanocobalamin [Vitamin B-12] 2,500 mcg PO DAILY 05/23/17 Fenofibrate 160 mg PO DAILY 05/23/17 Gabapentin 900 mg PO BID 05/23/17 Glipizide 5 mg PO DAILYBK 05/23/17 Insulin Glargine [Toujeo Solostar] 40 unit SC BID 05/23/17 Isosorbide Mononitrate [Isosorbide Mononitrate ER] 60 mg PO DAILY 05/23/17 Lisinopril 5 mg PO DAILY 05/23/17 Magnesium Oxide (mg Supplement [Magnesium Oxide] 250 mg PO DAILY 05/23/17 Niacin 500 mg PO DAILY 05/23/17 Ondansetron HCl [Zofran] 4 mg PO TID PRN 05/23/17 Potassium Chloride [Potassium Chloride ER] 10 meq PO DAILY 05/23/17 Vitamin E [Natural Vitamin E] 670 unit PO DAILY 05/23/17 Citalopram Hydrobromide [Citalopram] 20 mg PO DAILY 06/09/19 Darzalex 1,720 mg IV BIW 06/09/19 Dicyclomine HCl [Dicyclomine Hydrochloride] 20 mg PO TID PRN 06/09/19 Esomeprazole Magnesium [Nexium] 40 mg PO DAILY 06/09/19 Rivaroxaban [Xarelto] 20 mg PO DAILY 06/09/19 Alprazolam 0.5 mg PO BEDTIME 07/29/19 Immune Globulin (Human) IV [Flebogamma Dif] 0.5 gm IV MONTHLY 07/29/19 Insulin Lispro [Humalog Kwikpen] See Protocol SC TID 07/29/19 Levofloxacin [Levaquin] 750 mg PO DAILY #6 tablet 07/29/19 Nystatin Suspension [Nystatin] 10 ml MT Q4HR 07/29/19 Prednisone 10 mg PO PRN 07/29/19 Decision To Admit - Decistion To Admit Decision to Admit Reason: Medical Nature Decision to Admit Date: 11/21/19 Decision to Admit Time: 22:43
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
[2019-11-22] MEDS ORDERED: ONDANSETRON INJ 4 MG/2 ML VIAL IV PRN (01:17)
[2019-11-22] MEDS ORDERED: ALBUTEROL INHALER 64 PUFF/8GM INH PRN (01:22)
[2019-11-22] MEDS ORDERED: GLUCAGON INJ 1 MG VIAL SUBCU PRN (01:22)
[2019-11-22] MEDS ORDERED: DEXTROSE 50% 25 GM/50 ML SYG IV PRN (01:22)
[2019-11-22] MEDS ORDERED: CLINDAMYCIN INJ (VIAL) 600 MG in SODIUM CHLORIDE 0.9% 50ML 50 ML IVPB SCH ×2 (01:30→02:30)
[2019-11-22] MEDS ORDERED: ALPRAZolam 0.5 MG TAB PO PRN (01:39)
[2019-11-22] MEDS ORDERED: CLINDAMYCIN IV 600MG 50 ML IVPB ONE ×4 (01:56→19:00)
[2019-11-22] MEDS ORDERED: SODIUM CHL 0.9% 50ML MIN-BAG+ 50 ML IVPB ONE ×4 (01:56→19:01)
[2019-11-22] MEDS ORDERED: MEROPENEM 1 GM VIAL IVPB ONE ×4 (01:56→19:02)
[2019-11-22] MEDS: SODIUM CHLORIDE 0.45% 1000ML 1,000 ML IVS PRN ×3 (01:57→23:16)
[2019-11-22] MEDS: CLINDAMYCIN IV 600MG 600 MG in PREMIX BAG 1 BAG IVPB SCH ×5 (02:33→20:49)
[2019-11-22] MEDS: IV SET AND CAP CHANGE INJ INJ SCH (02:39)
[2019-11-22] MEDS: MEROPENEM 1 GM in SODIUM CHL 0.9% 50ML MIN-BAG+ 50 ML IVPB SCH ×3 (03:40→17:12)
[2019-11-22] MEDS ORDERED: LOPERAMIDE CAP 2 MG CAP PO ONE (03:56)
[2019-11-22] MEDS: PANTOPRAZOLE SODIUM IV 40 MG VIAL IV SCH (06:23)
[2019-11-22] MEDS: INSULIN LISPRO 100 UNITS/ML PEN SUBCU SCH ×6 (09:08→20:49)
[2019-11-22] MEDS ORDERED: MAGNESIUM SULFATE PREMIX 2GM 2 GM in PREMIX BAG 1 BAG IVPB ONE (09:18)
[2019-11-22] MEDS ORDERED: INSULIN DETEMIR 100 UNITS/ML PEN SUBCU ONE (09:24)
[2019-11-22] MEDS ORDERED: MAGNESIUM SULFATE PREMIX 2GM 50 ML IVPB ONE (10:14)
[2019-11-22] MEDS: HYDROcodone 7.5MG/APAP 325MG 1 EA TAB PO PRN (10:38)
[2019-11-22] MEDS ORDERED: SODIUM CHLORIDE 0.9% 1000ML 1,000 ML IVS ONE (11:09)
[2019-11-22] MEDS: RIVAROXABAN 10 MG TAB PO SCH (12:01)
[2019-11-22] MEDS ORDERED: ZOLPIDEM TARTRATE 10 MG TAB PO PRN (14:37)
[2019-11-22] MEDS ORDERED: NON-FORMULARY MEDICATION 1 EA MIS (Rivaroxaban [Xarelto] 20 MG) PO SCH (14:45)
[2019-11-22] MEDS ORDERED: ACYCLOVIR 200 MG CAP ONE ×2 (14:52→19:01)
[2019-11-22] MEDS ORDERED: ATENOLOL 25 MG TAB ONE (14:52)
[2019-11-22] MEDS: INSULIN GLARGINE 40 UNIT SUBCU SCH ×2 (15:39→20:50)
[2019-11-22] MEDS: MORPHINE ER 15 MG TAB PO SCH ×2 (15:46→20:43)
[2019-11-22] MEDS: ATENOLOL 25 MG TAB PO SCH ×2 (15:48→20:43)
[2019-11-22] MEDS: CITALOPRAM HBR 20 MG TAB PO SCH (15:48)
[2019-11-22] MEDS: ACYCLOVIR 200 MG CAP PO SCH ×2 (15:48→20:43)
[2019-11-22] MEDS: TAMSULOSIN 0.4 MG CAP PO SCH (15:48)
[2019-11-22] MEDS ORDERED: ATORVASTATIN 20 MG TAB PO ONE (19:01)
[2019-11-22] MEDS ORDERED: GABAPENTIN 300 MG CAP ONE (19:02)
[2019-11-22] MEDS: HYDROcodone 7.5MG/APAP 325MG 1 EA TAB PO SCH (20:42)
[2019-11-22] MEDS: GABAPENTIN 300 MG CAP PO SCH (20:42)
[2019-11-22] MEDS: ATORVASTATIN 20 MG TAB PO SCH (20:43)
[2019-11-22] MEDS ORDERED: ENOXAPARIN SODIUM 30 MG/0.3 ML SYG SUBCU SCH (21:00)
[2019-11-23] MEDS: MEROPENEM 1 GM in SODIUM CHL 0.9% 50ML MIN-BAG+ 50 ML IVPB SCH ×3 (02:30→18:22)
[2019-11-23] MEDS ORDERED: CLINDAMYCIN IV 600MG 50 ML IVPB ONE ×5 (02:37→20:51)
[2019-11-23] MEDS: CLINDAMYCIN IV 600MG 600 MG in PREMIX BAG 1 BAG IVPB SCH ×4 (03:03→20:42)
[2019-11-23] MEDS: PANTOPRAZOLE SODIUM IV 40 MG VIAL IV SCH (06:05)
[2019-11-23] MEDS: SODIUM CHLORIDE 0.45% 1000ML 1,000 ML IVS PRN (07:15)
[2019-11-23] MEDS: HYDROcodone 7.5MG/APAP 325MG 1 EA TAB PO PRN (07:15)
[2019-11-23] MEDS ORDERED: MEROPENEM 1 GM VIAL IVPB ONE ×3 (07:20→18:45)
[2019-11-23] MEDS ORDERED: SODIUM CHL 0.9% 50ML MIN-BAG+ 50 ML IVPB ONE ×3 (07:20→18:44)
[2019-11-23] MEDS: INSULIN LISPRO 100 UNITS/ML PEN SUBCU SCH ×7 (07:27→20:36)
[2019-11-23] MEDS: glipiZIDE 5 MG TAB PO SCH (07:28)
[2019-11-23] MEDS: CELECOXIB 100 MG CAP PO SCH (08:19)
[2019-11-23] MEDS: LISINOPRIL 5 MG TAB PO SCH (08:19)
[2019-11-23] MEDS: GABAPENTIN 300 MG CAP PO SCH ×2 (08:19→20:37)
[2019-11-23] MEDS: ATENOLOL 25 MG TAB PO SCH ×2 (08:19→20:39)
[2019-11-23] MEDS: ACYCLOVIR 200 MG CAP PO SCH ×2 (08:19→20:37)
[2019-11-23] MEDS: CITALOPRAM HBR 20 MG TAB PO SCH (08:19)
[2019-11-23] MEDS: TAMSULOSIN 0.4 MG CAP PO SCH (08:20)
[2019-11-23] MEDS: MORPHINE ER 15 MG TAB PO SCH ×2 (08:20→20:39)
[2019-11-23] MEDS: HYDROcodone 7.5MG/APAP 325MG 1 EA TAB PO SCH ×2 (08:20→20:37)
[2019-11-23] MEDS: INSULIN GLARGINE 40 UNIT SUBCU SCH ×3 (08:20→20:36)
[2019-11-23] MEDS ORDERED: DEXTROSE 5% 1000ML 1,000 ML IVS ONE ×2 (10:16→20:47)
[2019-11-23] MEDS ORDERED: SODIUM BICARBONATE VIAL 50 MEQ/50 ML VIAL ONE ×2 (10:17→20:48)
[2019-11-23] MEDS: SODIUM BICARBONATE VIAL 75 MEQ in DEXTROSE 5% 1000ML 1,000 ML IVS PRN ×2 (10:18→21:39)
[2019-11-23] MEDS: RIVAROXABAN 10 MG TAB PO SCH (11:55)
[2019-11-23] MEDS ORDERED: RIVAROXABAN 10 MG TAB PO SCH (12:00)
[2019-11-23] MEDS ORDERED: SODIUM CHLORIDE 0.9% 100ML 100 ML IVPB ONE (13:38)
[2019-11-23] MEDS ORDERED: FUROSEMIDE 40 MG TAB ONE (13:38)
[2019-11-23] MEDS ORDERED: THIAMINE HCL INJ 100 MG/ML VIAL ONE (13:38)
[2019-11-23] MEDS: THIAMINE HCL INJ 100 MG in SODIUM CHLORIDE 0.9% 100ML 100 ML IVPB SCH (13:45)
--- NOTE | 2019-11-23 14:55 | PN ---
SUPERVISING PHYSICIAN: Ajay Marx MD DATE: 11/23/19 SUBJECTIVE: The patient notes he felt a little confused this morning when he woke up but it may be the Ambien he takes at night. He has had no shortness of breath, no chest pain, no palpitations or nausea or vomiting. He said his diarrhea stopped. The patient notes he is starting to have much better output in regards to his urine output. OBJECTIVE: VITAL SIGNS: Temperature 98.6, T-max of 99.5, heart rate 87, blood pressure 150/69, respirations are 18, oxygen saturation 95% on room air. Weight actually down to 103.9 kg from admission of 106.0. GENERAL: The patient looks to be in no acute distress acutely, he is alert and resting comfortably. CHEST: Lung sounds are clear to auscultation with no notable rhonchi, rales, or wheezes. HEART: Regular rate and rhythm. ABDOMEN: Obese, soft, non-tender, positive bowel sounds. EXTREMITIES: Without edema. NEUROLOGIC: Alert and oriented x 3. LABORATORY: White count down to 11,400 from maximal of 12,900 last night. Stable hemoglobin 10.8 and hematocrit 32.0 with a macrocytosis presentation. On RBC indices, platelet count is up to 71,000. Differential does show a continued left shift. Chemistries show sodium of 133 corrected to 135, potassium 3.7, BUN down to 29. Creatinine is now normalized at baseline of 1.1. Blood sugars are ranging between 206 and 266. Lactic acid, however, is still elevated at 4.4. Uric acid normal at 4.9. Calcium 7.6. Ketones negative. MICROBIOLOGY: Blood cultures remained negative at 24 hours. MRSA cultures are pending. COVID-19 testing is pending. RADIOLOGY: No additional radiographic studies today. ASSESSMENT: 1. Group A strep pharyngitis with sepsis in a patient with multiple myeloma. 2. Sepsis secondary to #1 with patient having 104.5 temperature on admission, tachycardia, tachypneic with a lactic acidosis. 3. Metabolic acidosis with a normal anion gap with lactic acidosis, etiology uncertain at this point, possibly secondary to sepsis versus complications from multiple myeloma. 4. Hypertensive emergency now resolved and showing to be stable. 5. History of hypertension. 6. Diabetes mellitus type 2. 7. Stage 2 IGG kappa multiple myeloma status post auto stem placement on 2012. 8. Moderate hyperkalemia, 10. Chronic thrombocytopenia due to multiple myeloma showing improvement since admission. 11. History of chronic elevated liver enzymes secondary to multiple myeloma with current elevation of enzymes on admission. 12. Acute on chronic renal insufficiency secondary prerenal azotemia in patient with history of chronic multiple myeloma with patient now showing baseline creatinine levels after fluid replacement. 13. Recurrent pancreatitis with obstructed bile ducts but no signs of acute pancreatitis on admission. 14. Coronary artery disease with multiple myocardial infarctions and coronary artery stent placements. 15. History of shingles in patient with multiple myeloma. 16. Gastroesophageal reflux disease. 17. Benign prostatic hypertrophy. 18. Previous history of pulmonary embolism, on Xarelto. PLAN: I did discuss the lactic acidosis with Dr. Hernandez, nephrology, this morning. He felt the etiology might be due to some kidney dysfunction versus questionable tumor lysis. Therefore, he recommended we go ahead and try 3 to 4 hours of low-sodium recurrent therapy and recheck his lactic acid in the morning unless he clinically changes. Given he's had some mild confusion, especially on admission and his history, we will go ahead and start him on some thiamine. He does remain on antibiotic coverage empirically with clindamycin and meropenem. I restarted his medications back including his Lasix this afternoon to prevent any complications from vascular overload given previous fluid replacement and chronic therapy IV sodium bicarbonate. We will await his COVID-19 testing. Once those are available, he will be taken out of isolation. I anticipate at least another 48 hours of hospitalization given his history to insure he is continuing to respond to treatment. His lactic acidosis is treading down after his sodium bicarbonate infusion and will further monitor his blood sugars to assure that he did not have acute bacteremia on admission that resulted in his symptoms. He remains stable at this time and I anticipate we will problem discharge Monday. Until then, we will continue to monitor and treat as needed. [facility][id number] [facility]
[2019-11-23] MEDS: FUROSEMIDE 40 MG TAB PO SCH (16:54)
[2019-11-23] MEDS: ATORVASTATIN 20 MG TAB PO SCH (20:37)
[2019-11-24] MEDS: MEROPENEM 1 GM in SODIUM CHL 0.9% 50ML MIN-BAG+ 50 ML IVPB SCH ×3 (02:30→18:16)
[2019-11-24] MEDS: CLINDAMYCIN IV 600MG 600 MG in PREMIX BAG 1 BAG IVPB SCH ×4 (02:59→20:35)
[2019-11-24] MEDS: ACETAMINOPHEN 325 MG TAB PO PRN (05:45)
[2019-11-24] MEDS: PANTOPRAZOLE SODIUM IV 40 MG VIAL IV SCH (06:00)
[2019-11-24] MEDS ORDERED: SODIUM BICARBONATE VIAL 50 MEQ/50 ML VIAL ONE (06:52)
[2019-11-24] MEDS ORDERED: DEXTROSE 5% 1000ML 1,000 ML IVS ONE (06:52)
[2019-11-24] MEDS: SODIUM BICARBONATE VIAL 75 MEQ in DEXTROSE 5% 1000ML 1,000 ML IVS PRN (06:59)
[2019-11-24] MEDS ORDERED: CLINDAMYCIN IV 600MG 50 ML IVPB ONE ×3 (07:05→19:16)
[2019-11-24] MEDS ORDERED: SODIUM CHL 0.9% 50ML MIN-BAG+ 50 ML IVPB ONE ×3 (07:07→19:18)
[2019-11-24] MEDS ORDERED: THIAMINE HCL INJ 100 MG/ML VIAL ONE (07:08)
[2019-11-24] MEDS ORDERED: SODIUM CHLORIDE 0.9% 100ML 100 ML IVPB ONE (07:08)
[2019-11-24] MEDS ORDERED: MEROPENEM 1 GM VIAL IVPB ONE ×3 (07:09→19:19)
[2019-11-24] MEDS: INSULIN LISPRO 100 UNITS/ML PEN SUBCU SCH ×7 (07:43→20:42)
[2019-11-24] MEDS: glipiZIDE 5 MG TAB PO SCH (07:43)
[2019-11-24] MEDS: CELECOXIB 100 MG CAP PO SCH (08:45)
[2019-11-24] MEDS: LISINOPRIL 5 MG TAB PO SCH (08:45)
[2019-11-24] MEDS: GABAPENTIN 300 MG CAP PO SCH ×2 (08:45→20:34)
[2019-11-24] MEDS: ACYCLOVIR 200 MG CAP PO SCH ×2 (08:45→20:35)
[2019-11-24] MEDS: HYDROcodone 7.5MG/APAP 325MG 1 EA TAB PO SCH ×2 (08:45→20:34)
[2019-11-24] MEDS: FUROSEMIDE 40 MG TAB PO SCH ×2 (08:46→17:12)
[2019-11-24] MEDS: TAMSULOSIN 0.4 MG CAP PO SCH (08:46)
[2019-11-24] MEDS: MORPHINE ER 15 MG TAB PO SCH ×2 (08:46→20:38)
[2019-11-24] MEDS: CITALOPRAM HBR 20 MG TAB PO SCH (08:46)
[2019-11-24] MEDS: ATENOLOL 25 MG TAB PO SCH ×2 (08:46→20:35)
[2019-11-24] MEDS: INSULIN GLARGINE 40 UNIT SUBCU SCH ×3 (08:47→20:38)
[2019-11-24] MEDS: THIAMINE HCL INJ 100 MG in SODIUM CHLORIDE 0.9% 100ML 100 ML IVPB SCH (09:09)
[2019-11-24] MEDS: RIVAROXABAN 10 MG TAB PO SCH (11:52)
--- NOTE | 2019-11-24 15:57 | PN ---
SUPERVISING PHYSICIAN: ELIZABETH RODRÍGUEZ MD DATE: 11/24/19 SUBJECTIVE: The patient ran a fever this morning, T-max 101. He denied any confusion, chest pain, palpitations. He does note he has had some diarrhea but it is chronic since he started treatment for his multiple myeloma. OBJECTIVE: VITAL SIGNS: T-max of 101, pulse 102, blood pressure 128/70, respirations 22, oxygen saturation 97% on room air. . GENERAL: The patient looks to be in no acute distress, he is alert and resting comfortably. CHEST: Lung sounds are clear to auscultation with no notable rhonchi, rales, or wheezes. HEART: Regular rate and rhythm. ABDOMEN: Obese, soft, non-tender, positive bowel sounds. EXTREMITIES: Without edema. NEUROLOGIC: Alert and oriented x 3. ASSESSMENT: 1. Group A strep pharyngitis with sepsis in a patient with multiple myeloma. 2. Sepsis secondary to #1 with patient having 104.5 temperature on admission, tachycardia, tachypneic with a lactic acidosis with continued fever, T-max 101, 3. Metabolic acidosis with a normal anion gap with lactic acidosis, that has now resolved after 24 hours of bicarbonate infusion. . 4. Hypertensive emergency now resolved and showing to be stable. 5. History of hypertension. 6. Diabetes mellitus type 2. 7. Stage 2 IGG kappa multiple myeloma status post auto stem placement on 2012. 8. Moderate hyperkalemia, 10. Chronic thrombocytopenia due to multiple myeloma showing improvement since admission. 11. History of chronic elevated liver enzymes secondary to multiple myeloma with current elevation of enzymes on admission. 12. Acute on chronic renal insufficiency secondary prerenal azotemia in patient with history of chronic multiple myeloma with patient now showing baseline creatinine levels after fluid replacement. 13. Recurrent pancreatitis with obstructed bile ducts but no signs of acute pancreatitis on admission. 14. Coronary artery disease with multiple myocardial infarctions and coronary artery stent placements. 15. History of shingles in patient with multiple myeloma. 16. Gastroesophageal reflux disease. 17. Benign prostatic hypertrophy. 18. Previous history of pulmonary embolism, on Xarelto. LABORATORY: White count now has normalized at 8,300, hemoglobin 9.4, hematocrit 27.5, platelet count still remains low at 66,000, differential shows a left shift. Chemistries now show a normal lactic acid at 1.7, BUN and creatinine have normalized with a creatinine of 0.79, potassium a little low at 3.3, sodium 133, blood sugars remain between 157 and 235. COVID-19 is still pending. Blood cultures remain negative. MRSA surveillance culture showed negative for MRSA. PLAN: I did talk to Dr. Hernandez. He was in agreement with plan of care, just stop the bicarb, felt like it was probably a combination of some renal insufficiency in conjunction with underlying sepsis. I am still holding his metformin, give him at least 24 hours before we start that back because that may have been part of it, I am not real sure at this point. Will continue with antibiotic coverage. I was hoping he would be able to go home tomorrow but considering he ran a fever today, he will stay until at least Monday, I would like to see him be afebrile for 24 hours. If he does run another fever, he has orders to have blood cultures collected. In regard to the diarrhea, I have requested a C-difficile test, if that is negative we will control the diarrhea as needed. He will remain saline-locked. Hopefully, we will be able to transition him to outpatient management within the next 48 hours. Until then, we will continue with current antibiotics and continue to monitor and treat as needed. #[id number] [facility]
[2019-11-24] MEDS: ATORVASTATIN 20 MG TAB PO SCH (20:35)
[2019-11-25] MEDS: ACETAMINOPHEN 325 MG TAB PO PRN (00:38)
[2019-11-25] MEDS: IV SET AND CAP CHANGE INJ INJ SCH (00:49)
[2019-11-25] MEDS ORDERED: CLINDAMYCIN IV 600MG 50 ML IVPB ONE ×5 (02:09→22:22)
[2019-11-25] MEDS: MEROPENEM 1 GM in SODIUM CHL 0.9% 50ML MIN-BAG+ 50 ML IVPB SCH ×3 (02:42→19:10)
[2019-11-25] MEDS: SODIUM CHLORIDE 0.9% (FLUSH) 10 ML SYG IV PRN ×2 (02:43→05:46)
[2019-11-25] MEDS: CLINDAMYCIN IV 600MG 600 MG in PREMIX BAG 1 BAG IVPB SCH ×4 (03:20→20:44)
[2019-11-25] MEDS: PANTOPRAZOLE SODIUM IV 40 MG VIAL IV SCH (05:45)
[2019-11-25] MEDS: INSULIN LISPRO 100 UNITS/ML PEN SUBCU SCH ×7 (07:39→20:52)
[2019-11-25] MEDS: glipiZIDE 5 MG TAB PO SCH (07:42)
[2019-11-25] MEDS ORDERED: THIAMINE HCL INJ 100 MG/ML VIAL ONE (09:14)
[2019-11-25] MEDS ORDERED: SODIUM CHLORIDE 0.9% 100ML 100 ML IVPB ONE (09:15)
[2019-11-25] MEDS: MORPHINE ER 15 MG TAB PO SCH ×2 (09:23→20:53)
[2019-11-25] MEDS: HYDROcodone 7.5MG/APAP 325MG 1 EA TAB PO SCH ×2 (09:24→20:50)
[2019-11-25] MEDS: CITALOPRAM HBR 20 MG TAB PO SCH (09:24)
[2019-11-25] MEDS: ACYCLOVIR 200 MG CAP PO SCH ×2 (09:24→20:50)
[2019-11-25] MEDS: GABAPENTIN 300 MG CAP PO SCH ×2 (09:25→20:50)
[2019-11-25] MEDS: ATENOLOL 25 MG TAB PO SCH ×2 (09:25→20:50)
[2019-11-25] MEDS: CELECOXIB 100 MG CAP PO SCH (09:25)
[2019-11-25] MEDS: LISINOPRIL 5 MG TAB PO SCH (09:26)
[2019-11-25] MEDS: FUROSEMIDE 40 MG TAB PO SCH ×2 (09:26→17:01)
[2019-11-25] MEDS: TAMSULOSIN 0.4 MG CAP PO SCH (09:26)
[2019-11-25] MEDS: INSULIN GLARGINE 40 UNIT SUBCU SCH ×3 (09:27→20:53)
--- NOTE | 2019-11-25 10:34 | PN ---
SUPERVISING PHYSICIAN: Thomas Mina MD DATE: 11/25/19 SUBJECTIVE: The patient is sitting up in his bed. He does complain of some mild weakness, but he feels like he is getting stronger. No chest pain or shortness of breath. We discussed that he would stay at least one more day due to his low grade temperature and his immune compromised state. He was also informed that his COVID-19 testing was negative. OBJECTIVE: VITAL SIGNS: Temperature 99.3. Heart rate 67. Blood pressure 162/75. Respiratory rate 16. O2 saturation 99% on room air. RESPIRATORY: Essentially clear to auscultation bilaterally. CARDIAC: Regular rate and rhythm. GASTROINTESTINAL: Abdomen is soft, nondistended, nontender. Bowel sounds are positive. NEUROLOGIC: Awake, alert and oriented times three. LABORATORY: His blood sugars have run between 128 and 331. Preliminary blood cultures show no growth after 3 days. All other labs and films have been reviewed via the EMR. ASSESSMENT: 1. Group A strep pharyngitis with sepsis in a patient with multiple myeloma. 2. Sepsis secondary to #1 with patient having 104.5 temperature on admission, tachycardia, tachypneic with a lactic acidosis with continued fever, T-max 101. 3. Metabolic acidosis with a normal anion gap with lactic acidosis, now resolved after 24 hours of bicarbonate infusion. 4. Hypertensive emergency, resolved and stable. 5. History of hypertension. 6. Diabetes mellitus, type 2. 7. Stage 2 IGG kappa multiple myeloma status post auto stem placement in 2012. 8. Moderate hyperkalemia, 10. Chronic thrombocytopenia due to multiple myeloma showing improvement since admission. 11. History of chronic elevated liver enzymes secondary to multiple myeloma with current elevation of enzymes on admission. 12. Acute on chronic renal insufficiency secondary prerenal azotemia in a patient with history of chronic multiple myeloma with patient now showing baseline creatinine levels after fluid replacement. 13. Recurrent pancreatitis with obstructed bile ducts but no signs of acute pancreatitis on admission. 14. Coronary artery disease with multiple myocardial infarctions and coronary artery coronary artery stent placements. 15. History of shingles in patient with multiple myeloma. 16. Gastroesophageal reflux disease. 17. Benign prostatic hypertrophy. 18. Previous history of pulmonary embolism, on Xarelto. PLAN: We will continue present supportive care. I have ordered some labs for in the morning. At this point, I will most likely hold his metformin after discharge and he can discuss that with Dr. Mina if he needs to restart it. I encouraged good pulmonary hygiene and since his COVID-19 is negative, he should get up and walk around as much as possible. I will also watch his vital signs and hopefully his low grade temperature will improve and hopefully can be sent home tomorrow with close followup with Dr. Mina. #[id number] [facility]
[2019-11-25] MEDS: THIAMINE HCL INJ 100 MG in SODIUM CHLORIDE 0.9% 100ML 100 ML IVPB SCH (10:45)
[2019-11-25] MEDS ORDERED: MEROPENEM 1 GM VIAL IVPB ONE ×3 (12:10→19:52)
[2019-11-25] MEDS ORDERED: SODIUM CHL 0.9% 50ML MIN-BAG+ 50 ML IVPB ONE ×3 (12:10→19:51)
[2019-11-25] MEDS: RIVAROXABAN 10 MG TAB PO SCH (12:15)
[2019-11-25] MEDS: ATORVASTATIN 20 MG TAB PO SCH (20:50)
[2019-11-26] MEDS: ACETAMINOPHEN 325 MG TAB PO PRN (01:54)
[2019-11-26] MEDS: MEROPENEM 1 GM in SODIUM CHL 0.9% 50ML MIN-BAG+ 50 ML IVPB SCH ×2 (03:00→09:54)
[2019-11-26] MEDS: CLINDAMYCIN IV 600MG 600 MG in PREMIX BAG 1 BAG IVPB SCH ×2 (03:30→08:35)
[2019-11-26] MEDS: PANTOPRAZOLE SODIUM IV 40 MG VIAL IV SCH (06:01)
[2019-11-26] MEDS ORDERED: MAGNESIUM SULFATE PREMIX 2GM 2 GM in PREMIX BAG 1 BAG IVPB ONE ×2 (07:01→13:41)
[2019-11-26] MEDS ORDERED: POTASSIUM CHLORIDE 20 MEQ TAB PO ONE ×2 (07:01→10:00)
[2019-11-26] MEDS: INSULIN LISPRO 100 UNITS/ML PEN SUBCU SCH ×4 (07:11→11:41)
[2019-11-26] MEDS ORDERED: CLINDAMYCIN IV 600MG 50 ML IVPB ONE (07:25)
[2019-11-26] MEDS ORDERED: THIAMINE HCL INJ 100 MG/ML VIAL ONE (07:27)
[2019-11-26] MEDS ORDERED: MAGNESIUM SULFATE PREMIX 2GM 50 ML IVPB ONE ×2 (07:27→13:43)
[2019-11-26] MEDS ORDERED: SODIUM CHLORIDE 0.9% 100ML 100 ML IVPB ONE (07:28)
[2019-11-26] MEDS: glipiZIDE 5 MG TAB PO SCH (07:32)
[2019-11-26] MEDS: THIAMINE HCL INJ 100 MG in SODIUM CHLORIDE 0.9% 100ML 100 ML IVPB SCH (08:34)
[2019-11-26] MEDS: LISINOPRIL 5 MG TAB PO SCH (08:35)
[2019-11-26] MEDS: ACYCLOVIR 200 MG CAP PO SCH (08:35)
[2019-11-26] MEDS: CITALOPRAM HBR 20 MG TAB PO SCH (08:35)
[2019-11-26] MEDS: ATENOLOL 25 MG TAB PO SCH (08:35)
[2019-11-26] MEDS: CELECOXIB 100 MG CAP PO SCH (08:35)
[2019-11-26] MEDS: FUROSEMIDE 40 MG TAB PO SCH (08:36)
[2019-11-26] MEDS: GABAPENTIN 300 MG CAP PO SCH (08:36)
[2019-11-26] MEDS: TAMSULOSIN 0.4 MG CAP PO SCH (08:36)
[2019-11-26] MEDS: HYDROcodone 7.5MG/APAP 325MG 1 EA TAB PO SCH (08:36)
[2019-11-26] MEDS: INSULIN GLARGINE 40 UNIT SUBCU SCH (08:37)
[2019-11-26] MEDS: MORPHINE ER 15 MG TAB PO SCH (08:39)
[2019-11-26] MEDS ORDERED: SODIUM CHL 0.9% 50ML MIN-BAG+ 50 ML IVPB ONE (09:48)
[2019-11-26] MEDS ORDERED: MEROPENEM 1 GM VIAL IVPB ONE (09:49)
[2019-11-26] MEDS: RIVAROXABAN 10 MG TAB PO SCH (11:41)
[2019-11-26 13:28] VITALS: BP 137/87; TEMP 98; O2SAT 96
[2019-11-26] MEDS ORDERED: HEPARIN SODIUM 100 U/ML 5 ML SYG IV ONE ×2 (14:42→14:44)
--- NOTE | 2019-11-26 14:43 | DS ---
SUPERVISING PHYSICIAN: Thomas Mina MD DISCHARGE DIAGNOSIS: 1. Group A strep pharyngitis with sepsis in a patient with multiple myeloma. 2. Sepsis secondary to #1 with patient having 104.5 temperature on admission, tachycardia, tachypnea with a lactic acidosis and continued fever. 3. Metabolic acidosis with a normal anion gap as well as lactic acidosis, now resolved after 24 hours of bicarbonate infusion. 4. Hypertensive emergency, resolved and stable. 5. History of hypertension. 6. Diabetes mellitus, type 2. 7. Stage II IgG kappa multiple myeloma status post auto stem placement in 2012. 8. Electrolyte imbalance that includes hyperkalemia, hypomagnesemia as well as rebound hypokalemia, now resolved. 10. Chronic thrombocytopenia due to multiple myeloma, showing improvement since admission. 11. History of chronic elevated liver function tests secondary to multiple myeloma. 12. Acute on chronic renal insufficiency secondary prerenal azotemia in a patient with history of chronic multiple myeloma. His creatinine is now at baseline. 13. Recurrent pancreatitis with obstructed bile ducts, but no signs of acute pancreatitis on admission. 14. Coronary artery disease with multiple myocardial infarctions and coronary artery disease and coronary artery stent placements. 15. History of shingles in patient with multiple myeloma. 16. Gastroesophageal reflux disease. 17. Benign prostatic hypertrophy. 18. Previous history of pulmonary embolism, on Xarelto. 19. High risk for COVID-19. The patient was tested and he had negative results. HISTORY OF PRESENT ILLNESS: This is a 69 year-old male patient who has a longstanding history of diabetes mellitus, type 2, coronary artery disease, hypertension, stage II IgG kappa multiple myeloma status post stem cell transplant in 2012. He came to the Emergency Room the night prior to admission with confusion and fever reported at 104.5. He does receive weekly treatments in [place] for his multiple myeloma. He had been seen by his primary care physician's clinic the previous day and was initially treated with Rocephin an azithromycin and was found to have group A strep pharyngitis. They also did collect a COVID-19 test at that time due to his age, comorbidities and high risk for coronavirus. He call his primary care physician's office on the day prior to admission and he was sent to the Emergency Room for evaluation. In the Emergency Room, the patient was noted to be significant tachycardiac, febrile and confused as well as diaphoretic. He was also hypertensive with systolics in the 190s. Initial heart rate was 140 to 150s. There was no history of any chest pain. He was given oxygen and treated with antibiotics to include clindamycin and meropenem. Initial labs showed a white count of 5,100 with a left shift but no bands. Initial chemistries showed an elevated lactic acid at 3.7 with a creatinine of 1.71. Potassium on admission of 6.1, liver functions were elevated with an AST of 105, ALT of 68, which are chronically elevated per his history. BNP was only slightly elevated at 161. Urinalysis did show 100 of glucose, otherwise within normal limits. He was given Tylenol for his fever and fluids and was admitted to the medical/surgical floor for ongoing treatment of sepsis secondary to what appeared to be a group A strep pharyngitis with the patient being immunocompromised due to multiple myeloma. He also had lactic acidosis, hypertensive emergency and delirium. His vital signs were showing to be stable initially on admission. HOSPITAL COURSE: The patient was admitted to the hospital for sepsis secondary to group A Strep pharyngitis. He was continued with clindamycin and meropenem. He was given antipyretics for his elevated temperature. His Xarelto was continued which was sufficient for his DVT prophylaxis. His home medications were restarted. He was placed in airborne isolation until that testing was resulted. He continued to be confused off and on during the next 24 hours, but he has had no shortness of breath or chest pain, no nausea or vomiting. Dr. Hernandez, [address] in [place], was consulted and he felt that his lactic acidosis was due to his kidney dysfunction. Initially he had half normal saline and his lactic acid was checked the next morning. He responded well, but slowly to treatment. He was also given a sodium bicarbonate infusion. It was also recommended that he be taken off of his metformin, which may have contributed to his lactic acidosis. His lactic acid did finally normalize. He continued to have a low-grade temperature, but his confusion has resolved. This morning, he did have some hypokalemia and hypomagnesemia that was supplemented. He will be discharged home in stable condition with close followup with Dr. Mina as well as his oncologist in [place]. LABORATORY: WBCs started at 5,100 and went up as high as 12,900 and today are 7,100. His hemoglobin and hematocrit remained stable at 10.4 and 29.5. He had a left shift on his differential until today and it has normalized. Sodium is now normal at 137, potassium 2.9 this morning and after supplementation is 3.9. Chloride 100, carbon dioxide 27. It actually had been as low as 18. Creatinine on admission was 1.71 and today is 0.81. AST 28, ALT 86. Her serum ketones were negative. MICROBIOLOGY: Preliminary blood cultures showed no growth after 4 days. C. difficile test was negative for antigen as well as toxin. Influenza type A and B per PCR were both negative. RADIOLOGY: Chest x-ray on admission showed enlarged heart with moderate central congestion, atelectatic changes versus infiltrate in infrahilar regions bilaterally, unchanged. DISCHARGE PLAN: The patient will be discharged home in stable condition. He is to resume his previous diet and increase his activity as tolerated. He has a followup appointment with Dr. Mina at 10:45 on 12/03/19. He is to resume his previous home medications with the exception of his metformin. At his followup appointment, he can discuss with Dr. Mina if that should be continued. He also will need a CMP and CBC at followup appointment. He is also to call his oncologist to resume his chemo treatment in [place]. He is to return to the hospital or followup with Dr. Mina for any problems or complications. DISCHARGE MEDICATIONS: 1. Nexium. 2. Citalopram. 3. Potassium chloride. 4. Zovirax. 5. Xarelto. 6. Tenormin. 7. Fenofibrate. 8. Zolpidem. 9. Furosemide. 10. Fluticasone. 11. Toujeo insulin. 12. Humalog insulin. 13. Tamsulosin. 14. Celebrex. 15. Hydrocodone. 16. Morphine sulfate. 17. Atorvastatin. 18. Zofran. 19. Nitroglycerin. 20. Lisinopril. 21. Glipizide. 22. Gabapentin. 23. Cetirizine. 24. Clindamycin. #[id number] [facility]
== END 2019-11-26 15:10 | disposition home or self-care (01) | DRG 872 ==
LOC: ER 18:59 → MS 11-22 01:02 → OBSVTOIN 11-22 01:02 → MS 11-25 11:38
PROVIDERS: ADMIT Nurse Practitioner Acute Care; ATTEND Nurse Practitioner Acute Care
DX: A40.0 Sepsis due to streptococcus, group A (principal); C90.00 Multiple myeloma not having achieved remission; E87.2 Acidosis; I16.1 Hypertensive emergency; Z94.84 Stem cells transplant status; J02.0 Streptococcal pharyngitis; I12.9 Hypertensive chronic kidney disease with stage 1 through stage 4 chronic kidney disease, or unspecified chronic kidney disease; N18.9 Chronic kidney disease, unspecified; E11.22 Type 2 diabetes mellitus with diabetic chronic kidney disease; E87.6 Hypokalemia; E83.42 Hypomagnesemia; I25.10 Atherosclerotic heart disease of native coronary artery without angina pectoris; I25.2 Old myocardial infarction; K21.9 Gastro-esophageal reflux disease without esophagitis; N40.0 Benign prostatic hyperplasia without lower urinary tract symptoms; Z95.5 Presence of coronary angioplasty implant and graft; Z86.711 Personal history of pulmonary embolism; Z79.01 Long term (current) use of anticoagulants; M19.90 Unspecified osteoarthritis, unspecified site; Z88.0 Allergy status to penicillin; Z88.1 Allergy status to other antibiotic agents; Z91.040 Latex allergy status; Z87.891 Personal history of nicotine dependence; E66.9 Obesity, unspecified; Z79.02 Long term (current) use of antithrombotics/antiplatelets; Z79.891 Long term (current) use of opiate analgesic; Z79.4 Long term (current) use of insulin; Z79.899 Other long term (current) drug therapy; Z79.52 Long term (current) use of systemic steroids

== ENCOUNTER → 2020-07-03 | Outpatient (CLI) | payer MEDICARE | LOC: GMA CAST 12:58 | PROVIDERS: ATTEND Family Medicine Sports Medicine | DX: R10.84 Generalized abdominal pain (principal) ==

== ENCOUNTER 2020-07-04 13:53 | Emergency (ER) | payer MEDICARE ==
[2020-07-04] MEDS ORDERED: HYDROmorphone HCL INJ 2 MG/ML VIAL IV ONE ×2 (14:42→16:57)
--- NOTE | 2020-07-04 14:46 | ED.PDOC ---
History of Present Illness - General Chief Complaint: General Stated Complaint: right sided back and abdomen pain Time Seen by Provider: 07/04/20 14:41 - History of Present Illness Initial Comments: 70M with history of multiple myeloma, hypertension, diabetes, CAD who presents to the ED with right lower quadrant/right flank pain. Has been intermittent for several weeks but worse since yesterday. On oral morphine and hydrocodone at home which helps. States that he saw his PCP yesterday who felt that it might be related to a pinched nerve. he states that he can bend forward and the pain will ease some. no nausea/vomiting, diaphoresis. No changes to bowel/bladder function. no dysuria or hematuria. No other complaints at this time. Saw PCP yesterday and got an injection that did not alleviate his symptoms. Allergies/Adverse Reactions: Allergies Cephalexin Allergy (Verified 07/29/19 13:23) Latex Allergy (Verified 07/29/19 13:23) Penicillins Allergy (Verified 05/23/17 15:42) Vancomycin Allergy (Verified 05/23/17 15:42) tape Allergy (Uncoded 05/23/17 15:42) Home Medications: Ambulatory Orders Acyclovir [Zovirax] 400 mg PO BID 11/22/19 Atenolol [Tenormin] 50 mg PO BID 11/22/19 Atorvastatin Calcium [Lipitor] 20 mg PO DAILY 11/22/19 Celecoxib [Celebrex] 200 mg PO DAILY 11/22/19 Cetirizine HCl [Allergy Relief] 10 mg PO PRN PRN 11/22/19 Citalopram Hydrobromide [Citalopram] 20 mg PO DAILY 11/22/19 Esomeprazole Magnesium 40 mg PO DAILY 11/22/19 Fenofibrate 160 mg PO DAILY 11/22/19 Fluticasone Propionate (Nasal) [Allergy Nasal [place] 24 Ho] 50 mcg NA Q24H PRN 11/22/19 Furosemide 40 mg PO BID 11/22/19 Gabapentin 900 mg PO BID 11/22/19 Glipizide 5 mg PO DAILYBK 11/22/19 Hydrocodone-Acetaminophen [[place] 7.5-325 mg] 1 tablet PO BID 11/22/19 Insulin Glargine [Toujeo Solostar] 40 units SUBCU TID 11/22/19 Insulin Lispro [Humalog] 12 - 16 units SUBCU TID 11/22/19 Lisinopril [Prinivil] 5 mg PO DAILY 11/22/19 Morphine Sulfate [Morphine Sulfate ER] 15 mg PO BID 11/22/19 Nitroglycerin [Nitro-Dur] 0.4 mg SL Q5M PRN MDD 3 doses in 15 minutes 11/22/19 Ondansetron Odt [Zofran Odt] 4 mg PO DAILY PRN 11/22/19 Potassium Chloride [Potassium Chloride ER] 10 meq PO BID PRN 11/22/19 Rivaroxaban [Xarelto] 20 mg PO DAILY 11/22/19 Tamsulosin HCl [Flomax] 0.4 mg PO DAILY 11/22/19 Zolpidem Tartrate 10 mg PO BEDTIME PRN 11/22/19 Clindamycin HCl [Clindamycin Hydrochloride] 300 mg PO TID #18 cap 11/26/19 Methocarbamol [Robaxin] 1,500 mg PO TID #60 tab 07/04/20 Review of Systems - Review of Systems Constitutional: States: malaise. Denies: chills, fever EENTM: States: no symptoms reported Respiratory: Denies: cough, short of breath Cardiology: Denies: chest pain, palpitations Gastrointestinal/Abdominal: States: abdominal pain. Denies: constipation, diarrhea, nausea, vomiting Genitourinary: Denies: dysuria, frequency, hematuria Musculoskeletal: States: back pain. Denies: joint pain, joint swelling Skin: States: no symptoms reported Neurological: States: no symptoms reported Endocrine: States: no symptoms reported Hematologic/Lymphatic: States: no symptoms reported All other Systems: Reviewed and Negative Past Medical History (General) - Patient Medical History Hx Seizures: No Hx Stroke: No Hx Dementia: No Hx Asthma: No Hx of COPD: No Hx Cardiac Disorders: Yes Hx Congestive Heart Failure: Yes Hx Pacemaker: No Hx Hypertension: Yes Hx Thyroid Disease: No Hx Diabetes: Yes Hx Gastroesophageal Reflux: No Hx Renal Disease: No Hx Cancer: Yes - Multimyloma Hx of HIV: No Hx Hepatitis C: No Hx MRSA: Yes MRSA Source:: Skin - Vaccination History Hx Tetanus, Diphtheria Vaccination: No Hx Influenza Vaccination: Yes Hx Pneumococcal Vaccination: Yes - Social History Hx Tobacco Use: Yes Hx Chewing Tobacco Use: No Hx Alcohol Use: No Hx Substance Use: No Hx Substance Use Treatment: No Hx Depression: No Hx Physical Abuse: No Hx Emotional Abuse: No Hx Suspected Abuse: No Family Medical History - Family History Mother Family History: Unknown Living Status: Hx Family Asthma: Yes Hx Family;Other: Dementia, COPD Father Living Status: Age at (years of age): 53 Hx Cardiac Disease: Yes Physical Exam - Physical Exam General Appearance: Comfortable, No apparent distress Ears, Nose, Throat: hearing grossly normal, normal ENT inspection Neck: non-tender, full range of motion, supple Respiratory: lungs clear, normal breath sounds, no respiratory distress, no accessory muscle use Cardiovascular/Chest: regular rate, rhythm Gastrointestinal/Abdominal: normal bowel sounds, non tender, soft, no organomegaly, no pulsatile mass Back Exam: normal inspection, no CVA tenderness, no vertebral tenderness Extremity: normal range of motion, normal inspection Neurologic: no motor/sensory deficits, alert, normal mood/affect, oriented x 3 Skin Exam: normal color Lymphatic: no adenopathy Progress - Progress Progress: 07/04/20 16:58 Patient reassessed, workup as above. CT scan reviewed, there is no evidence for appendicits, colitis, obstruction, renal colic, or AAA. Pain likely referred pain secondary to peripheral neuropathy/pinched nerve. Will continue outpatient pain management and he will follow up with his primary care provider. Home care instructions and return indications reviewed. - Results/Orders Results/Orders: Laboratory Results - last 24 hr 07/04/20 07/04/20 07/04/20 14:57 14:57 15:42 WBC 5.6 RBC 3.33 L Hgb 11.7 L Hct 33.7 L MCV 101.3 H MCH 35.1 H MCHC 34.6 RDW 13.6 Plt Count 122 L MPV 7.7 Absolute Neuts (auto) 3.20 Absolute Lymphs (auto) 1.70 Absolute Monos (auto) 0.70 Absolute Eos (auto) 0.00 Absolute Basos (auto) 0.00 Neutrophils % 56.2 Lymphocytes % 29.6 Monocytes % 13.0 H Eosinophils % 0.6 L Basophils % 0.6 Sodium 139 Potassium 4.3 Chloride 102 Carbon Dioxide 26 Anion Gap 15.3 BUN 24 H Creatinine 1.08 BUN/Creatinine Ratio 22.2 H Random Glucose 103 Serum Osmolality 281.8 Calcium 8.5 Urine Color Yellow Urine Appearance Clear Urine pH 6.0 Ur Specific [place] 1.010 Urine Protein Negative Urine Glucose (UA) Negative Urine Ketones Negative Urine Blood Negative Urine Nitrite Negative Urine Bilirubin Negative Urine Urobilinogen 0.2 Ur Leukocyte Esterase Negative Urine RBC [address]: Ur Epithelial Cells [address] Abdomen/Pelvis:EXAM: CT Abdomen and Pelvis With Intravenous Contrast CLINICAL HISTORY: The patient is 70 years old and is Male; RLQ/Right flank pain TECHNIQUE: Axial computed tomography images of the abdomen and pelvis with intravenous contrast. Sagittal and coronal reformatted images were created and reviewed. This CT exam was performed using one or more of the following dose reduction techniques: automated exposure control, adjustment of the mA and/or kV according to patient size, and/or use of iterative reconstruction technique. COMPARISON: July 29, 2019 CT abdomen pelvis with contrast. FINDINGS: Lung bases: Unremarkable. No mass. No consolidation. ABDOMEN: Liver: Fatty liver. Gallbladder and bile ducts: Cholecystectomy. No ductal dilation. Pancreas: No findings to suggest acute pancreatitis. No mass visualized. No ductal dilation. Spleen: Unremarkable. No splenomegaly. Adrenals: Unremarkable. No mass. Kidneys and ureters: Unremarkable. No solid mass. No hydronephrosis. Stomach and bowel: Colonic diverticulosis. No bowel dilatation or obstruction. No bowel wall thickening. Stomach is empty. No small bowel dilatation or obstruction. PELVIS: Appendix: The visualized appendix is normal. No pericecal inflammation to suggest acute appendicitis. Bladder: Unremarkable. No mass. Reproductive: Unremarkable as visualized. ABDOMEN and PELVIS: Intraperitoneal space: Unremarkable. No free air. No significant fluid collection. Bones/joints: Multilevel degenerative changes in spine. Mild scoliosis. No acute fracture. Mild degenerative changes in the hips. No dislocation. Soft tissues: Unremarkable. Vasculature: Unremarkable. No abdominal aortic aneurysm. Lymph nodes: No pathologically enlarged lymph nodes. IMPRESSION: 1. No acute obstructive or inflammatory process identified. Normal appendix. 2. Fatty liver. 3. Cholecystectomy. 4. Colonic diverticulosis. MDM: Patient presents with RLQ pain, workup as above. There is no focal abdominal tenderness. No radiographic evidence for acute intra-abdominal abnormality. He is on hydrocodone and morphine at home. He has chronic back pain and this may be referred pain from nerve root compression. His pain is improved in the Emergency Department. Will continue outpatient symptomatic management and he will follow up with his PCP. Home care instructions and return indications reviewed. Departure - Departure Clinical Impression: Right flank pain Time of Disposition: 17:02 Disposition: Discharge to Home or Self Care Condition: Fair Departure Forms: ED Discharge - Pt. Copy, ED Discharge - Work Release, Patient Portal Self Enrollment Instructions: Low Back Pain (DC), Acute Abdomen (Belly Pain), Adult (DC) Diet: resume usual diet Referrals: RAFAEL RODRÍGUEZ MD [Primary Care Provider] - 1-2 Weeks Prescriptions: Methocarbamol [Robaxin] 1,500 mg PO TID #60 tab Home Medications: Ambulatory Orders Acyclovir [Zovirax] 400 mg PO BID 11/22/19 Atenolol [Tenormin] 50 mg PO BID 11/22/19 Atorvastatin Calcium [Lipitor] 20 mg PO DAILY 11/22/19 Celecoxib [Celebrex] 200 mg PO DAILY 11/22/19 Cetirizine HCl [Allergy Relief] 10 mg PO PRN PRN 11/22/19 Citalopram Hydrobromide [Citalopram] 20 mg PO DAILY 11/22/19 Esomeprazole Magnesium 40 mg PO DAILY 11/22/19 Fenofibrate 160 mg PO DAILY 11/22/19 Fluticasone Propionate (Nasal) [Allergy Nasal [place]obb[place] 24 Ho] 50 mcg NA Q24H PRN 11/22/19 Furosemide 40 mg PO BID 11/22/19 Gabapentin 900 mg PO BID 11/22/19 Glipizide 5 mg PO DAILYBK 11/22/19 Hydrocodone-Acetaminophen [[place] 7.5-325 mg] 1 tablet PO BID 11/22/19 Insulin Glargine [Toujeo Solostar] 40 units SUBCU TID 11/22/19 Insulin Lispro [Humalog] 12 - 16 units SUBCU TID 11/22/19 Lisinopril [Prinivil] 5 mg PO DAILY 11/22/19 Morphine Sulfate [Morphine Sulfate ER] 15 mg PO BID 11/22/19 Nitroglycerin [Nitro-Dur] 0.4 mg SL Q5M PRN MDD 3 doses in 15 minutes 11/22/19 Ondansetron Odt [Zofran Odt] 4 mg PO DAILY PRN 11/22/19 Potassium Chloride [Potassium Chloride ER] 10 meq PO BID PRN 11/22/19 Rivaroxaban [Xarelto] 20 mg PO DAILY 11/22/19 Tamsulosin HCl [Flomax] 0.4 mg PO DAILY 11/22/19 Zolpidem Tartrate 10 mg PO BEDTIME PRN 11/22/19 Clindamycin HCl [Clindamycin Hydrochloride] 300 mg PO TID #18 cap 11/26/19 Methocarbamol [Robaxin] 1,500 mg PO TID #60 tab 07/04/20
--- NOTE | 2020-07-04 16:35 | CT ---
EXAM: CT Abdomen and Pelvis With Intravenous Contrast CLINICAL HISTORY: The patient is 70 years old and is Male; RLQ/Right flank pain TECHNIQUE: Axial computed tomography images of the abdomen and pelvis with intravenous contrast. Sagittal and coronal reformatted images were created and reviewed. This CT exam was performed using one or more of the following dose reduction techniques: automated exposure control, adjustment of the mA and/or kV according to patient size, and/or use of iterative reconstruction technique. COMPARISON: July 29, 2019 CT abdomen pelvis with contrast. FINDINGS: Lung bases: Unremarkable. No mass. No consolidation. ABDOMEN: Liver: Fatty liver. Gallbladder and bile ducts: Cholecystectomy. No ductal dilation. Pancreas: No findings to suggest acute pancreatitis. No mass visualized. No ductal dilation. Spleen: Unremarkable. No splenomegaly. Adrenals: Unremarkable. No mass. Kidneys and ureters: Unremarkable. No solid mass. No hydronephrosis. Stomach and bowel: Colonic diverticulosis. No bowel dilatation or obstruction. No bowel wall thickening. Stomach is empty. No small bowel dilatation or obstruction. PELVIS: Appendix: The visualized appendix is normal. No pericecal inflammation to suggest acute appendicitis. Bladder: Unremarkable. No mass. Reproductive: Unremarkable as visualized. ABDOMEN and PELVIS: Intraperitoneal space: Unremarkable. No free air. No significant fluid collection. Bones/joints: Multilevel degenerative changes in spine. Mild scoliosis. No acute fracture. Mild degenerative changes in the hips. No dislocation. Soft tissues: Unremarkable. Vasculature: Unremarkable. No abdominal aortic aneurysm. Lymph nodes: No pathologically enlarged lymph nodes. IMPRESSION: 1. No acute obstructive or inflammatory process identified. Normal appendix. 2. Fatty liver. 3. Cholecystectomy. 4. Colonic diverticulosis. Electronically signed by: Velia Johnson MD 07/04/2020 4:34 PM [facility]
[2020-07-04] MEDS ORDERED: HEPARIN SODIUM 100 U/ML 5 ML SYG IV ONE (17:08)
[2020-07-04 18:04] VITALS: BP 152/81; TEMP 97.4; O2SAT 97
== END 2020-07-04 17:15 | disposition home or self-care (01) ==
LOC: ER 13:53
DX: R10.31 Right lower quadrant pain (principal); M54.9 Dorsalgia, unspecified; K57.30 Diverticulosis of large intestine without perforation or abscess without bleeding; Z90.49 Acquired absence of other specified parts of digestive tract; K76.0 Fatty (change of) liver, not elsewhere classified; I50.9 Heart failure, unspecified; I11.0 Hypertensive heart disease with heart failure; E11.9 Type 2 diabetes mellitus without complications; Z87.891 Personal history of nicotine dependence; Z85.79 Personal history of other malignant neoplasms of lymphoid, hematopoietic and related tissues; I25.10 Atherosclerotic heart disease of native coronary artery without angina pectoris; Z88.1 Allergy status to other antibiotic agents; Z91.040 Latex allergy status; Z88.0 Allergy status to penicillin; Z79.899 Other long term (current) drug therapy; Z79.4 Long term (current) use of insulin; Z79.01 Long term (current) use of anticoagulants
CPT/HCPCS: 36415; 74177; 80048; 81001; 85025; J1170; J1642

== ENCOUNTER → 2020-09-07 | Outpatient (CLI) | payer MEDICARE | LOC: GMAE 14:13 | PROVIDERS: ATTEND Family Medicine | DX: E03.9 Hypothyroidism, unspecified (principal); E11.8 Type 2 diabetes mellitus with unspecified complications; E78.2 Mixed hyperlipidemia; I10 Essential (primary) hypertension ==